=== PATIENT | female | born 1955 | race Caucasian/White ===

== ENCOUNTER 2020-04-16 09:31 | Outpatient (CLI) | payer MEDICARE, SELFPAY ==
--- NOTE | ~2020-04-16 | MM_ITS ---
EXAMINATION: MM screening romulo BI w tami HISTORY: Screening mammogram TECHNIQUE: Craniocaudal and mediolateral oblique 3-D tomosynthesis images were obtained and synthetic 2-D images were generated. CAD analysis was submitted and interpreted. COMPARISON: Comparison to multiple prior studies sequentially, with oldest reviewed study dated 05/2024. BREAST PARENCHYMAL COMPOSITION: There are scattered areas of fibroglandular density. FINDINGS: There is no evidence of suspicious mass, calcification, or architectural distortion to sugg est malignancy in either breast. There has been no suspicious interval change. IMPRESSION: 1. No mammographic evidence of malignancy. 2. Recommend routine screening mammography in one year. BI-RADS Category 1: Negative Reviewed, dictated and finalized at location A.
== END 2020-04-16 09:32 | disposition home or self-care (01) ==
PROVIDERS: PCP Student in an Organized Health Care Education/Training Program; Visit Provider Student in an Organized Health Care Education/Training Program
DX: Z12.31 Encounter for screening mammogram for malignant neoplasm of breast (principal)
CPT/HCPCS: 77063; 77067

== ENCOUNTER 2021-05-17 08:38 | Outpatient (CLI) | payer MEDICARE, SELFPAY ==
--- NOTE | ~2021-05-17 | MM_ITS ---
EXAMINATION: MM screening romulo BI w tami HISTORY: Screening mammogram, family history of breast cancer in her mother. TECHNIQUE: Craniocaudal and mediolateral oblique 3-D tomosynthesis images were obtained and synthetic 2-D images were generated. CAD analysis was submitted and interpreted. COMPARISON: 04/16/2020, 03/17/2019, 10/07/2017, 09/18/2017 BREAST PARENCHYMAL COMPOSITION: There are scattered areas of fibroglandular density. FINDINGS: There is no evidence of suspicious mass, calcification, or architectural distortion to sugg est malignancy in either breast. There has been no suspicious interval change. IMPRESSION: 1. No mammographic evidence of malignancy. 2. Recommend routine screening mammography in one year. BI-RADS Category 1: Negative Reviewed, dictated and finalized at location A.
== END 2021-05-17 08:39 | disposition home or self-care (01) ==
LOC: ANHIMG 08:40
PROVIDERS: PCP Student in an Organized Health Care Education/Training Program; Visit Provider Student in an Organized Health Care Education/Training Program
DX: Z12.31 Encounter for screening mammogram for malignant neoplasm of breast (principal)
CPT/HCPCS: 77063; 77067

== ENCOUNTER 2022-04-24 07:37 | Outpatient (NON) | payer MEDICARE, SELFPAY | END 2022-04-24 07:38 | disposition home or self-care (01) | PROVIDERS: PCP Student in an Organized Health Care Education/Training Program; Visit Provider Internal Medicine Gastroenterology | DX: D50.9 Iron deficiency anemia, unspecified (principal) | CPT/HCPCS: 88305 ==

== ENCOUNTER 2022-04-24 12:27 | Day surgery (SDC) | payer MEDICARE, SELFPAY ==
[2022-04-09 09:35] VITALS: BMI 29.9
[2022-04-24 12:45] VITALS: BP 123/65; PULSE 63; RESP 20; TEMP 36.8; O2SAT 100
[2022-04-24 12:47] VITALS: BMI 29.4
[2022-04-24] MEDS: LACTATED RINGERS 1,000 ML 150 ML IV CONT (13:12)
--- NOTE | 2022-04-24 13:54 | PM.IMHP ---
H&P: HPI History of Present Illness Date/Time: 04/24/22 13:54 Chief Complaint: Iron deficiency anemia. Narrative: This is a 66-year-old white female patient seen in evaluation at the [facility]. Patient found to have microcytic anemia on routine screening. She was also found to have iron deficient indices. Laboratory parameters also reflect leukopenia. Patient denies any obvious signs of GI blood loss. She does admit to rather heavy menses. Her weight appetite bowel movements are normal. Stool is general normal color. She has no excess bruising. No nose bleeds or other signs of blood loss. She presents today for GI endoscopy. Patient reports cologuard test was negative several years ago. She does have a prior colonoscopy many years ago that was unremarkable. Family history noncontributory. Review of Systems Review of Systems: Review of systems noncontributory. [facility] Past Medical History Medical History WALT (iron deficiency anemia) Family History Family History Father Family history of cardiovascular disease Acute myocardial infarction, Onset Age: 60 Family history of lung cancer Grandparent Family history of malignant neoplasm of breast Mother Family history of malignant neoplasm of breast in first degree relative Social History Social History Smoking status: Never smoker Alcohol intake: current Substance use type: does not use Living arrangements: with family Spiritual care concerns: No Meds Home Medications and Allergies Home Medications Medication Instructions Recorded Confirmed Type ferrous fumarate 325 mg (106 mg 325 mg PO DAILY 03/17/22 04/24/22 History iron) tablet peg 3350-electrolytes 236 240 ml PO Q10M #4,000 mL 04/08/22 04/24/22 Rx gram-22.74 gram-6.74 gram-5.86 gram solution (Golytely) Allergies Allergy/AdvReac Type Severity Reaction Status Date / Time latex Allergy Unknown Skin Verified 04/24/22 12:45 Reaction Vital Signs Vital Signs - 24 hr 04/24/22 12:45 Temperature 98.3 F Pulse Rate 63 Respiratory Rate 20 Blood Pressure 123/65 Pulse Oximetry 100 Oxygen Delivery Room Air Exam Narrative: Physical exam reveals patient to be alert. Vital signs stable. HEENT exam is unremarkable. Patient is anicteric. Lungs are clear to auscultation and percussion. Heart is without murmur or extra sounds. Abdomen bowel sounds present soft nontender with no organomegaly. Digital external rectal exam is normal. Assessment and Plan Assessment and plan (1) Leukopenia: Code(s): D72.819 - Decreased white blood cell count, unspecified Status: Acute Assessment and Plan: Leukopenia identified on initial blood testing. The etiology of this is unclear. This should be followed up with follow-up CBCs consider hematology evaluation if this persists. (2) WALT (iron deficiency anemia): Code(s): D50.9 - Iron deficiency anemia, unspecified Status: Acute Assessment and Plan: Patient recently found to have microcytic anemia with iron deficient indices. No obvious signs of GI blood loss she does admit to rather heavy menses. Plan is for GI endoscopy including colonoscopy an EGD. Stool Hemoccult should be obtained as well accomplished. Consider small-bowel follow-through if necessary. Because of low white count also consider hematologic process and hematology consult if GI endoscopy not fruitful. Further recommendations will be given after colonoscopy.
--- NOTE | 2022-04-24 14:55 | P.PNAN_ITS ---
Anes - Initial Pre Proc Eval Procedure: Operation Date: 04/24/22 14:00 Proposed Procedures p Esophagogastroduodenoscopy - Quinn Garcia MD s Diagnostic Colonoscopy - Quinn Garcia MD Date/Time: 04/24/22 14:55 Surgeon: Quinn Garcia MD Pre Op Diagnosis: IRON DEFICIENCY ANEMIA Patient Data Age: 66 Gender: F Height: 1.63 m Weight: 77.7 kg Last Vital Signs Temp 36.8 C 04/24/22 12:45 Pulse 63 04/24/22 12:45 Resp 20 04/24/22 12:45 BP 123/65 04/24/22 12:45 Pulse Ox 100 04/24/22 12:45 O2 Del Method Room Air 04/24/22 12:45 Allergies Allergy/AdvReac Type Severity Reaction Status Date / Time latex Allergy Unknown Skin Verified 04/24/22 12:45 Reaction Home Medications Medication Instructions Recorded Confirmed Type ferrous fumarate 325 mg (106 mg 325 mg PO DAILY 03/17/22 04/24/22 History iron) tablet peg 3350-electrolytes 236 240 ml PO Q10M #4,000 mL 04/08/22 04/24/22 Rx gram-22.74 gram-6.74 gram-5.86 gram solution (Golytely) Patient hx anesthesia problems: none Family hx anesthesia problems: none Results Review: All pre-operative results and documents have been reviewed as part of the pre- operative evaluation. [facility] Past Medical History Medical History WALT (iron deficiency anemia) Surgical History Surgical History (Updated 04/24/22 @ 14:55 by Felipe Machado MD) H/O colonoscopy Family History Family History Father Family history of cardiovascular disease Acute myocardial infarction, Onset Age: 60 Family history of lung cancer Grandparent Family history of malignant neoplasm of breast Mother Family history of malignant neoplasm of breast in first degree relative Social History Social History Smoking status: Never smoker Alcohol intake: current Substance use type: does not use Living arrangements: with family Spiritual care concerns: No Anes - Eval Final PreProcedure Day of Procedure 04/24/22 14:55 Patient weight: overweight Heart: regular rate and rhythm Lungs: clear to auscultation Airway: Mallampati scale class II Neurological: alert and oriented ASA classification: II Emergent: no Anesthetic plan: proceed Anesthesia type and monitoring: general GIVS and standard monitoring Results Review: All pre-operative results and documents have been reviewed as part of the pre- operative evaluation. Informed Consent: The patient's anesthetic plan and its attendant risks and benefits were discussed with the patient/family/POA. Questions were solicited and answers provided to the satisfaction of the patient/family/POA.
[2022-04-24 15:48] VITALS: BP 101/62; PULSE 69; RESP 16; O2SAT 100
--- NOTE | 2022-04-24 15:56 | WPDANESPN ---
Anes - Prog Note Post-Op Date/Time: 04/24/22 15:56 Cardiovascular status: normal Respiratory status: normal Airway patency: baseline Mental status: baseline Post-Op hydration status: normal Vital Signs: Last Vital Signs Temp 36.8 C 04/24/22 12:45 Pulse 63 04/24/22 12:45 Resp 20 04/24/22 12:45 BP 123/65 04/24/22 12:45 Pulse Ox 100 04/24/22 12:45 O2 Del Method Room Air 04/24/22 12:45 Pain Score (VAS): 0/10 I/O: Intake & Output 04/23/22 04/24/22 04/24/22 23:59 07:59 15:59 Intake Total 900 Balance 900 Patient Feedback: Patient satisfied with anesthetic care.
[2022-04-24 15:58] VITALS: BP 105/80; PULSE 65; RESP 16; O2SAT 100
[2022-04-24 16:08] VITALS: BP 114/67; PULSE 65; RESP 16; O2SAT 100
== END 2022-04-24 16:26 | disposition home or self-care (01) ==
PROVIDERS: PCP Student in an Organized Health Care Education/Training Program; Visit Provider Internal Medicine Gastroenterology
PROC: 0DJ08ZZ Inspection of Upper Intestinal Tract, Via Natural or Artificial Opening Endoscopic (ICD-10-PCS; CPT 43235; principal; 2022-04-24 14:00)
PROC: 0DJD8ZZ Inspection of Lower Intestinal Tract, Via Natural or Artificial Opening Endoscopic (ICD-10-PCS; CPT 45378; 2022-04-24 14:00)
DX: D50.9 Iron deficiency anemia, unspecified (principal)
CPT/HCPCS: 45385; 43239

== ENCOUNTER 2022-08-04 07:22 | Outpatient (CLI) | payer MEDICARE, SELFPAY ==
--- NOTE | ~2022-08-04 | DEXA_ITS ---
Bone Density Report Name: SITA RICO Age: 67 Sex: Female Ethnicity: White Date of : 1955 Indication: postmenopausal; screening for osteoporosis; Referring Provider: ARLINE, MARGUERITE Study: Bone densitometry was performed. Exam Date: August 04, 2022 Accession number: [id number] Bone Density: Region BMD T-score Z-score Classification AP Spine(L1-L4) 1.226 1.6 3.7 Normal Femoral Neck (Left) 0.854 0.0 1.8 Normal Total Hip (Left) 0.975 0.3 1.7 Normal Femoral Neck (Right) 0.884 0.3 2.0 Normal Total Hip (Right) 1.006 0.5 2.0 Normal Total Hip Mean 0.990 0.4 1.9 Normal World Health Organization criteria for BMD impression classify patients as: Normal (T-score at or above -1.0), Osteopenia (T-score between -1.0 and -2.5), or Osteoporosis (T-score at or below -2.5). 10-year Fracture Risk: FRAX not reported because: All T-scores for Spine Total, Hip Total, Femoral Neck at or above -1.0 Previous Exams: Region Exam Age BMD T-score BMD Change BMD Change Date g/cm2 vs Baseline vs Previous AP Spine (L1-L4) 08/04/2022 67 1.226 1.6 0.073 (6.3%)* 0.073 (6.3%)* 04/21/2016 60 1.153 1.0 Total Hip(Left) 08/04/2022 67 0.975 0.3 -0.118 (-10.8% -0.118 (-10.8% 04/21/2016 60 1.093 1.2 Total Hip(Right) 08/04/2022 67 1.006 0.5 -0.064 (-6.0%) -0.064 (-6.0%) 04/21/2016 60 1.069 1.0 *Denotes significance at 95% confidence level, LSC for AP Spine = 0.022 g/cm2, LSC for Total Hip = 0.027 g/cm2 Clinical Information Provided by Patient: Patient maximum height was 64.5 Menopause Age: 50 Drinks caffeinated beverages Onset of menses at age 8 Number of children 2 Impression: The patient has normal bone mass. The BMD for the Total Hip(Left) decreased, changing by -10.8% since the last DXA exam. The BMD for the Total Hip(Right) decreased, changing by -6.0% since the last DXA exam. Discussion: BONE DENSITY IS ABOVE THE MINIMUM DESIRABLE LEVEL AT ALL SKELETAL SITES TESTED. This patient?s bone mineral density is above the minimum desirable level (T-score -1.0 or better) at all sites measured. The patient should follow a healthful lifestyle (good nutrition with adequate calcium and vitamin D, and appropriate weight-bearing exercise). Follow-Up: Consider repeating this study in 3 to 4 years to reassess this patient's status, or sooner if there is some new clinical indication. Reported by: SANDIP on 08/04/2022 7
--- NOTE | ~2022-08-04 | MM_ITS ---
EXAMINATION: MM screening romulo BI w tami HISTORY: Screening mammogram TECHNIQUE: Craniocaudal and mediolateral oblique 3-D tomosynthesis images were obtained and synthetic 2-D images were generated. CAD analysis was submitted and interpreted. COMPARISON: 05/17/2021, 04/16/2020, 03/17/2019, 09/18/2017 bilateral screening mammogram examinations BREAST PARENCHYMAL COMPOSITION: There are scattered areas of fibroglandular density. FINDINGS: There is no evidence of suspicious mass, calcification, or architectural distortion to sugg est malignancy in either breast. There has been no suspicious interval change. IMPRESSION: 1. No mammographic evidence of malignancy. 2. Recommend routine screening mammography in one year. BI-RADS Category 1: Negative Reviewed, dictated and finalized at location A. 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
== END 2022-08-04 07:23 | disposition home or self-care (01) ==
LOC: ANHIMG 07:23
PROVIDERS: PCP Student in an Organized Health Care Education/Training Program; Visit Provider Student in an Organized Health Care Education/Training Program
DX: Z12.31 Encounter for screening mammogram for malignant neoplasm of breast (principal); Z78.0 Asymptomatic menopausal state
CPT/HCPCS: 77063; 77067; 77080

== ENCOUNTER 2023-11-30 08:27 | Outpatient (CLI) | payer MEDICARE, SELFPAY ==
--- NOTE | ~2023-11-30 | MM_ITS ---
EXAMINATION: MM screening romulo BI w tami HISTORY: Screening mammogram TECHNIQUE: Craniocaudal and mediolateral oblique 3-D tomosynthesis images were obtained and synthetic 2-D images were generated. CAD analysis was submitted and interpreted. COMPARISON: 08/04/2022, 05/17/2021 bilateral screening mammogram examinations BREAST PARENCHYMAL COMPOSITION: There are scattered areas of fibroglandular density. FINDINGS: There is no evidence of suspicious mass, calcification, or architectural distortion to sugg est malignancy in either breast. There has been no suspicious interval change. IMPRESSION: 1. No mammographic evidence of malignancy. 2. Recommend routine screening mammography in one year. BI-RADS Category 1: Negative Reviewed, dictated and finalized at location A. [employer]
== END 2023-11-30 08:28 | disposition home or self-care (01) ==
LOC: ANHIMG 08:30
PROVIDERS: PCP Student in an Organized Health Care Education/Training Program; Visit Provider Student in an Organized Health Care Education/Training Program
DX: Z12.31 Encounter for screening mammogram for malignant neoplasm of breast (principal)
CPT/HCPCS: 77063; 77067

== ENCOUNTER 2024-12-06 15:29 | Outpatient (CLI) | payer MEDICARE, SELFPAY ==
--- NOTE | ~2024-12-06 | MM_ITS ---
EXAMINATION: MM screening romulo BI w tami HISTORY: Screening mammogram, family history of breast cancer in her mother. TECHNIQUE: Craniocaudal and mediolateral oblique 3-D tomosynthesis images were obtained and synthetic 2-D images were generated. CAD analysis was submitted and interpreted. COMPARISON: 11/30/2023, 08/04/2022, 05/17/2021, 04/16/2020 BREAST PARENCHYMAL COMPOSITION:Not Dense. There are scattered areas of fibroglandular density. FINDINGS: No suspicious mass, calcification, or architectural distortion are identified in either rachana ast to suggest malignancy. There has been no suspicious interval change. IMPRESSION: No mammographic evidence of malignancy. Recommend routine screening mammography in one year. BI-RADS Category 1: Negative Reviewed, dictated and finalized at location .
--- OUTSIDE RECORDS SUMMARY | 2024-12-06 17:30 | XMS_ITS | Clinical Summary ---
Author Organization [facility] Address [address] [place] [address] Care Team Providers Care Dial Mounter Name Role Phone Unknown, Provider Primary Care Provider Unavaila ble Source Comments [facility],non-owned Affiliates and Associated Physician Practices is amultiple site organization consisting of ambulatory clinics and hospital sitesin [place] and [place]. This disclosure is being madepursuant to the Care Everywhere program and may not contain all information available regarding this patient. Last updated 18.[facility] Allergies No known active allergies Medications Be aware that medications may not be up to date on this document. Always verify current medications with the patient. No known medications Social History Tobacco Use Types Packs/Day Years Used Date Smoking Tobacco: Never Assessed Sex and Gender Information Value Date Recorded Sex Assigned at Not on file Gender Identity Not on file Sexual Orientation Not on file Plan of Treatment Health Maintenance Due Date Last Done Comments BONE DENSITY TESTING 1955 COLON MONITORING 1955 COLONOSCOPY - COLON CA SCREENING 1955 CT COLONOGRAPHY - COLON CA SCREENING 1955 FIT - COLON CA SCREENING 1955 FLEX SIG - COLON CA SCREENING 1955 MAMMOGRAM 1955 DTAP/TDAP/TD VACCINES (1 - Tdap) 1972 PNEUMOCOCCAL VACCINE 50+ (1 of 1 - PCV) 2003 ZOSTER VACCINE (1 of 2) 2003 COLOGUARD (AGES 45-75) - COLON CA SCREENING 11/28/2022 11/29/2019 Colorectal Cancer Screening 11/28/2022 COVID-19 VACCINE (1 - 2023-25 season) 2024 INFLUENZA VACCINE (#1) 2024 9, 07/19/2018, 07/16/2018, Additional history exists DEPRESSION SCREENING 09/28/2024 LIPID TESTING 01/16/2028 01/15/2023 Respiratory Syncytial Virus (RSV) Vaccine Pt: or over 60 yrs (1 - 1-dose 75+ series) 2028 HEPATITIS C SCREENING Completed 01/15/2023, 023 HEPATITIS B VACCINE Aged Out No longe r eligible based on patient's age to complete this topic HIB VACCINE Aged Out No longer eligi ble based on patient's age to complete this topic HPV VACCINE Aged Out No longer eligi ble based on patient's age to complete this topic MENINGOCOCCAL (Group B) VACCINE Aged Out No longer eligible based on patient's age to complete this topic MENINGOCOCCAL VACCINE Aged Out No verito isabel eligible based on patient's age to complete this topic Procedures Procedure Name Priority Date/Time Associated Diagnosis Comments LIPID PROFILE Routine 01/15/2023 10:29 AM CDT Willing to be kidney donor HEPATITIS C RNA QUANTITATIVE Routine 01/15/2023 10:29 AM CDT Willing to be kidney donor from Last 3 Months or Most Recently Relevant to Health Maintenance Results * HEPATITIS C RNA QUANTITATIVE (01/15/2023 10:29 AM CDT) Hepatitis C RNA PCR, Interp Not detected Not detected 01/19/2023 1:08 PM CDT [facility]CRO[facility] Blood BLOOD SPECIMEN / Unknown Lab Venipuncture / Unknown 01/15/2023 10:29 AM CDT 01/15/2023 1:15 PM CDT Narrative [facility]CRO[facility] - 01/19/2023 1:08 PM CDT The Hepatitis C viral (HCV) RNA analysis utilized a serum sample, real-time reverse power plant supervisor PCR, and is reported as Not Detected, Detected (<12 IU/mL), Quantity (IU/mL) or >30,000,000 IU/mL. The limit of quantitation of the assay is 12 IU/mL (100% of samples with this HCV RNA level were detected). The linear range is from 12 IU/mL to 30,000,000 IU/mL. Values less than 12 IU/mL are reported as Detected (<12 IU/mL). Values greater than 30,000,000 IU/mL are reported as >30,000,000 IU/mL. The detection/quantitation of HCV RNA in serum is based on the isolation of HCV RNA with reverse power plant supervisor of genomic HCV RNA followed by real-time PCR in the presence of an unrelated RNA internal control. The internal control ensures that RNA is isolated, and that no general significant inhibitors of the RT-PCR process are present. The analysis was performed using a U.S. FDA approved test methodology. Steven Wiggins MD LAB - CHEMISTRY ORDERABLES [facility] [address] [place] [address], [facility] [phone] * (ABNORMAL) LIPID PROFILE (01/15/2023 10:29 AM CDT) [facility] Cholesterol Total 249(H) <200 mg/dL 01/15/2023 11:25 AM [facility] HDL 74 >40 mg/dL 01/15/2023 11:25 AM [facility] Comment: ATP III Classification of HDL Cholesterol: <40 mg/dL: Considered a major risk factor. >60 mg/dL: Considered a negative risk factor. LDL Calculated 158(H) <100 mg/dL 01/15/2023 11:25 AM [facility] Comment: ATP III Classification of LDL Cholesterol: <100 mg/dL: Optimal 100 - 129 mg/dL: Near Optimal/Above Optimal 130 - 159 mg/dL: Borderline High 160 - 189 mg/dL: High >190 mg/dL: Very High Triglycerides 83 <150 mg/dL 01/15/2023 11:25 AM [facility] Comment: ATP III Classification of Triglycerides: <150 mg/dL: Normal 150 - 199 mg/dL: Borderline High 200 - 400 mg/dL: High >500 mg/dL: Very High Blood BLOOD SPECIMEN / Unknown Lab Venipuncture / Unknown 01/15/2023 10:29 AM CDT 01/15/2023 10:58 AM CDT Steven Wiggins MD LAB - CHEMISTRY ORDERABLES [facility] [address] [place] [address], [facility] [phone] from Last 3 Months or Most Recently Relevant to Health Maintenance Care Teams Dial Mounter Relationship Specialty Start Date End Date Unknown, Provider PCP - General 01/13/23
--- OUTSIDE RECORDS SUMMARY | 2024-12-06 17:30 | XMS_ITS | Referral Summary ---
Author Organization [facility] Address [address] [place] [address] Care Team Providers Care Classroom Assistant Name Role Phone Unknown, Provider Primary Care Provider Unavaila ble Source Comments [facility],non-owned Affiliates and Associated Physician Practices is amultiple site organization consisting of ambulatory clinics and hospital sitesin [place], [place], [place] and [place]. This disclosure is being madepursuant to the Care Everywhere program and may not contain all information available regarding this patient. Last updated 18.[facility] [employer] Allergies No known active allergies Medications Be [...] Orientation Not on file Plan of Treatment Not on file Procedures Procedure Name Priority Date/Time Associated Diagnosis [...] detected Not detected 01/19/2023 1:08 PM CDT [facility] Blood BLOOD SPECIMEN / Unknown Lab Venipuncture / Unknown 01/15/2023 10:29 AM CDT 01/15/2023 1:15 PM CDT Narrative [facility]CROBIOLOG[facility] - 01/19/2023 1:08 PM CDT The Hepatitis C viral (HCV) RNA analysis utilized a serum sample, real-time reverse housekeeper nanny PCR, and is reported as Not Detected, [...] the isolation of HCV RNA with reverse housekeeper nanny of genomic HCV RNA followed by real-time PCR in the presence of an unrelated RNA internal control. The internal control ensures that RNA is isolated, and that no general significant inhibitors of the RT-PCR process are present. The analysis was performed using a U.S. FDA approved test methodology. Steven Wiggins MD LAB - CHEMISTRY ORDERABLES [facility]CRO[facility] [address], [place] [address], [facility] [phone] * (ABNORMAL) LIPID PROFILE (01/15/2023 10:29 AM CDT) [facility] Signature Cholesterol Total 249(H) <200 mg/dL 01/15/2023 11:25 AM [facility] HDL 74 >40 mg/dL 01/15/2023 11:25 AM [facility] Comment: ATP III Classification of HDL Cholesterol: <40 mg/dL: Considered a major risk factor. >60 mg/dL: Considered a negative risk factor. LDL Calculated 158(H) <100 mg/dL 01/15/2023 11:25 AM [facility] Comment: ATP III Classification of LDL Cholesterol: <100 mg/dL: Optimal 100 - 129 mg/dL: Near Optimal/Above Optimal 130 - 159 mg/dL: Borderline High 160 - 189 mg/dL: High >190 mg/dL: Very High Triglycerides 83 <150 mg/dL 01/15/2023 11:25 AM CDT [facility] Comment: ATP III Classification of Triglycerides: <150 mg/dL: Normal 150 - 199 mg/dL: Borderline High 200 - 400 mg/dL: High >500 mg/dL: Very High Blood BLOOD SPECIMEN / Unknown Lab Venipuncture / Unknown 01/15/2023 10:29 AM CDT 01/15/2023 10:58 AM CDT Steven Wiggins MD LAB - CHEMISTRY ORDERABLES [facility] [address] [place] [address], [facility] [phone] from Last 3 Months or Most Recently Relevant to Health Maintenance Care Teams Classroom Assistant Relationship Specialty Start Date End Date Unknown, Provider PCP - General 01/13/23
--- OUTSIDE RECORDS SUMMARY | 2024-12-06 17:31 | XMS_ITS | Clinical Summary ---
Author Organization [facility] Address [address] [place] [address] Care Team Providers Care Amortization Schedule Clerk Name Role Phone Walter Brown Primary Care Provider + Allergies Active Allergy Reactions Criticality Noted Date Comments Latex Rash Low 11/19/2018 Medications triamcinolone (KENALOG) 0.1 % creamIndication s:Rash Apply topically 2 (two) times daily. 45 g 2 Active terbinafine (LAMISIL) 250 MG tablet Take 1 tablet (250 mg total) by mouth daily. 4 Active valACYclovir (VALTREX) 1 g tabletIndicatio ns:Recurrent cold sores Take 2 tablets at onset of symptoms and 12 hours for 1 day. 20 tablet 2 4 Active Active Problems Problem Noted Date Diagnosed Date Rash of body 11/07/2019 HNP (herniated nucleus pulposus), lumbar 019 Immunizations Name Administration Dates Next Due Fluzone High Dose - >Age 65 (Prefilled Syringe) 08/10/2023,07/18/2022,07/09/2021,2019 Hepatitis A 08/03/2006,07/08/2005 Hepatitis B (Generic: Adult) 05/06/2006 Influenza (Generic) 07/19/2018 Influenza Adult (Generic) 07/18/2022,03/2019,07/16/2018,2016,07/27/2017,07/26/2017,08/30/2015,1 PFIZER COVID-19 (ORIGINAL FORMULATION, PURPLE CAP) mRNA, LNP-S, PF, 30 MCG/0.3 ML DOSE 10/02/2021,12/16/2020,11/25/2020 Pneumococcal (Pneumovax 23) 07/25/2020 Pneumococcal (Prevnar 13) 07/16/2018 Shingrix 09/29/2019,07/15/2019 Tdap (Generic) 07/08/2005 Family History Medical History Relation Comments Cancer Father Lung and Bones Diabetes Maternal Aunt Arthritis Mother Cancer Mother breast and Uteri ne Cancer Paternal Grandmother breast Relation Status Comments Father Maternal Aunt Mother Paternal Grandmother Social History Tobacco Use Types Packs/Day Years Used Date Smoking Tobacco: Never Passive Smoke Exposure: Never Smokeless Tobacco: Never Comments:never Alcohol Use Standard Drinks/Week Comments Not Currently 0 (1 standard drink = 0.6 oz pur e alcohol) AUDIT-C Answer Date Recorded Frequency of Alcohol Consumption 2-4 times a mon 11/07/2019 Average Number of Drinks 1 or 2 020 Frequency of Binge Drinking Never 10/29 PHQ-2 Answer Date Recorded Patient Health Questionnaire-2 Score 0 05/05/2024 Comments No Sex and Gender Information Value Date Recorded Sex Assigned at Not on file Legal Sex Female 7:13 PM CDT Gender Identity Not on file Sexual Orientation Not on file Occupation Industry Job Start Date Job End Date Not on file Not on file Not on file Not on file Last Filed Vital Signs Vital Sign Reading Time Taken Comments Blood Pressure 102/70 05/05/2024 8:21 AM CDT Pulse 78 05/05/2024 8:21 AM CDT Temperature 36.3 C (97.3 F) 05/05/2024 8:21 AM CDT Respiratory Rate 16 05/05/2024 8:21 AM CDT Oxygen Saturation 97% 05/05/2024 8:21 AM CDT Inhaled Oxygen Concentration - - Weight 79.4 kg (175 lb) 05/05/2024 8:21 AM CDT Height 165.1 cm (5' 5 ) 05/05/2024 8:21 AM CDT Body Mass Index 29.12 05/05/2024 8:21 AM CDT Plan of Treatment Health Maintenance Due Date Last Done Comments Annual Medicare Wellness Visit 2018 COVID-19 Vaccine ( season) 2024 10/02/2021, 12/16/2020, 11/25/2020 Influenza Adult (#1) 2024 08/10/2023, 07/18/2022, 07/18/2022, Additional history exists PHQ-2 (Physician [place]) 09/28/2024 05/05/2024 Mammogram Screening 11/29/2024 11/30/2023, 08/04/2022, 05/17/2021, Additional history exists PHQ-2 (Physician [place]) 05/05/2025 05/05/2024 Colorectal Cancer Screening Colonoscopy (10 Years) 04/24/2027 04/24/2022 RSV Immunization or 60+ Years (1 - 1-dose 75+ series) 2028 DTaP, Tdap and Td Vaccines (2 - Td or Tdap) 11/07/2028 07/08/2005 Postponed from 07/08/2015 (Per Provider Recommendation) Zoster Vaccines Completed 09/29/2019, 07/15/2019 Pneumococcal Vaccine: 65+ Years Completed 07/25/2020, 07/16/2018 Dexa Scan (General) Completed 08/04/2022, Hepatitis C Completed 01/15/2023, 12/28, 01/15/2023, Additional history exists Meningococcal B Vaccine Aged Out No l onger eligible based on patient's age to complete this topic Meningococcal Vaccine Aged Out No verito isabel eligible based on patient's age to complete this topic RSV Immunizations Under 20 Months Aged Out No longer eligible based on patient's age to complete this topic Procedures Procedure Name Priority Date/Time Associated Diagnosis Comments MAMMOGRAM GENERIC (SCAN ORDER) 11/30/2023 BONE DENSITY/DEXA Routine 08/04/2022 12: 00 AM [employer]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 Postmenopause COLONOSCOPY GENERIC (SCAN ORDER) 04/24/2022 HEPATITIS C ANTIBODY Routine 01/28/2022 8:37 AM CDT Encounter for preventative adult health care examination Need for hepatitis C screening test from Last 3 Months or Most Recently Relevant to Health Maintenance Results * MAMMOGRAM GENERIC (SCAN ORDER) (11/30/2023) Anatomical Region Laterality Modality Other 11/30/2023 [facility] Scanned SCANNING Final Resu lt * BONE DENSITY/DEXA (08/04/2022 12:00 AM 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 Documents Scanned SCANNING Final Result * HEPATITIS C AB ([facility] ONLY) (01/28/2022 8:37 AM CDT) HEPATITIS C AB NON-REACTI VE NON-REACT LATESHA 01/31/2022 9:06 PM CDT [facility] Comment: ANTIBODIES TO HCV NOT DETECTED. DOES NOT EXCLUDE THE POSSIBILITY OF EXPOSURE TO HCV. 01/28/2022 8:37 AM CDT Walter Brown DO LABORATORY Final Re sult [facility] [address] [place] [address], [id number] from Last 3 Months or Most Recently Relevant to Health Maintenance Insurance Care Teams Amortization Schedule Clerk Relationship Specialty Start Date End Date Walter Brown DO [address] [place], [place] [id number] PCP - General FAMILY PRACTICE 11/07/19
--- OUTSIDE RECORDS SUMMARY | 2024-12-06 17:31 | XMS_ITS | Encounter Summary ---
Author Organization [facility] Address [address] [place] [address] Care Team Providers Care Slide Developer Name Role Phone Unknown, Provider Primary Care Provider Unavaila ble Reason for Referral * Radiology Services (Routine) - Closed Specialty Diagnoses / Procedures Referred By Jocelyne t Referred To Contact Diagnoses Willing to be kidney donor Procedures ECHO STRESS W EXERCISE Steven Wiggins MD [address] [facility] [place] [address] Referral ID Status Reason Start Date Expiration Date Visits Re quested Visits Authorized [id number] Closed 01/05/2023 01/05/2024 1 1 * OP/Amb RFL Auth (Routine) - Closed Specialty Diagnoses / Procedures Referred By Jocelyne sanchez Referred To Contact Diagnoses Willing to be kidney donor Procedures EKG 12-LEAD Steven Wiggins MD [address] [facility] [place] [address] [facility] Ekg/Holter [address] [place] [address] Referral ID Status Reason Start Date Expiration Date Visits Re quested Visits Authorized [id number] Closed 01/05/2023 01/05/2024 1 1 * Radiology Services (Routine) - Closed Specialty Diagnoses / Procedures Referred By Contac t Referred To Contact CT Scan Diagnoses Willing to be kidney donor Procedures CT ANGIO ABDOMEN PELVIS Steven Wiggins MD [address] [facility] [place] [address] Referral ID Status Reason Start Date Expiration Date Visits Re quested Visits Authorized [id number] Closed 01/05/2023 01/05/2024 1 1 Encounter Details Date Type Department Care Team (Late st Contact Info) Description 01/05/2023 Telephone [facility] JONATHAN CSM 3L [address] [facility], [place] [id number] Omar Nagy, LIZ Social History Tobacco Use Types Packs/Day Years Used Date Smoking Tobacco: Never Assessed Sex and Gender Information Value Date Recorded Sex Assigned at Not on file Gender Identity Not on file Sexual Orientation Not on file documented as of this encounter Plan of Treatment Scheduled Orders Name Type Priority Associated Diagnoses Order Schedule ECHO STRESS W EXERCISE Echocardiography Radiant Routine Willing to be kidney donor Expected: 01/05/2023, Expires: 07/04/2023 documented as of this encounter Results * CT ANGIO ABDOMEN PELVIS (01/15/2023 11:29 AM CDT) Anatomical Region Laterality Modality Abdomen, Pelvis Computed Tomogra phy 01/15/2023 1:37 PM CDT Impressions 01/15/2023 5:23 PM CDT IMPRESSION: 1.Kidney measurements and vasculature as above. 2.Three-dimensional rendering of bilateral kidneys for operative planning. 3.Normal bilateral kidneys without hydronephrosis or nephrolithiasis. Two small cysts in the right kidney measuring up to 7 mm. 4.2 cm hemangioma in the hepatic segment 7. This report was drafted by Dr. Henrique Camejo MD. (residential property manager). Savana House MD have personally reviewed and interpreted this examination/study. > Interpreting Provider: Savana Tao MD on 01/15/2023 5:23 PM Narrative 01/15/2023 5:23 PM CDT PROCEDURE: CT ANGIO ABDOMEN PELVIS, DATE/TIME OF EXAM: 01/15/2023 11:30 AM, LOCATION [facility] INDICATION: Z00.5: Willing to be kidney donor Comparison: None Indication: Z00.5: Willing to be kidney donor Technique: CTA imaging of the abdomen and pelvis without and with IV contrast was performed using the renal donor protocol. Precontrast imaging of the abdomen and pelvis was performed. The patient then received IV contrast (Isovue-300, 150 mL) without incident. CTA imaging of the renal arteries and abdomen was performed in the arterial phase, followed by venous phase imaging of the abdomen and pelvis. A delayed AP engineer byproduct view of the abdomen and pelvis was obtained. Iodinated contrast was used due to the indications for the examination, to improve disease detection and to further define anatomy. The examination made use of volume rendering and multiple planar reformations. This rendering was performed because of the indication(s) for the examinations. If 3D reconstructions had not been performed, the likelihood of detecting an abnormality relevant to the patient's condition would have been substantially decreased.The most recent serum creatinine is 0.81 mg/dL on 01/15/2023. FINDINGS: Right Kidney: Number of arteries: 1 Number of veins: 1 Number of ureters: 1 Kidney length (AP): 4.3 cm Kidney length: 10.7 cm Kidney width ( TV): 5.7 cm Kidney volume (mL/cc): 137.2 mL Renal artery has early bifurcation(<10mm from aorta): No Left Kidney: Number of arteries: 1 Number of veins: 1 Number of ureters: 1 Kidney length (AP): 4.7 cm Kidney length: 10.4 cm Kidney width (TV): 4.9 cm Kidney volume (mL/cc): 125.3 mL Renal artery has early bifurcation(<10mm from aorta): No There is a 7 mm cyst at the superior pole of the right kidney (series 13, image 62). There is a 3 mm low density structure in the interpolar right kidney, likely representing a cyst. There is no hydronephrosis or nephrolithiasis. There is acute angulation in the proximal one third course of the right ureter without upstream dilatation (series 14, image 38). The left ureter has course and caliber. No filling defect in the ureters is identified. The urinary bladder is normal. Lower Chest: There is linear atelectasis at the right lung base. An approximately 4 mm is nodule is noted in the right lung base with linear configuration on coronal images (image 42, series 7, image 50, series 14), likely benign. Abdomen: Liver and Gall Bladder: There is an approximately 2 cm ill-defined low density lesion in the hepatic segment 7 (series 7, image 43) with peripheral nodular arterial enhancement. This lesion demonstrate gradual centripetal filling on delayed contrast enhancement phases. This is compatible with a hemangioma. The gallbladder is normal. There is no biliary dilatation. Spleen: Normal. Pancreas: Normal. Adrenals: Adrenals are normal. Gastrointestinal: A tiny hiatal hernia is present. The stomach is otherwise normal. Bowel loops are normal without bowel wall thickening or obstruction. The small bowel and colon appear normal without wall thickening or obstruction. Mesentery/Peritoneum/Retroperitoneum: There is no mesenteric or retroperitoneal lymphadenopathy. There is no free intraperitoneal fluid. Pelvic Structures: The uterus and adnexa unremarkable. There is no free pelvic fluid. There is no pelvic lymphadenopathy. Vasculature: The abdominal aorta has normal course and caliber. No significant atherosclerosis of abdominal aorta and major branch vessels. The IVC is normal. Bones and Soft tissues: Bone windows demonstrate no suspicious lytic or blastic lesions. The visible osseous structures are intact. Degenerative changes are seen in the lumbar spine. There is trace anterolisthesis of L4 over L5. Procedure Note Val Tao MD - 01/15/2023 PROCEDURE: CT ANGIO ABDOMEN PELVIS, DATE/TIME OF EXAM: 01/15/2023 11:30 AM, LOCATION [facility] INDICATION: Z00.5: Willing to be kidney donor Comparison: None Indication: Z00.5: Willing to be kidney donor Technique: CTA imaging of the abdomen and pelvis without and with IV contrast was performed using the renal donor protocol. Precontrastimaging of the abdomen and pelvis was performed. The patient then received IV contrast (Isovue-300, 150 mL) without incident. CTA imaging of therenal arteries and abdomen was performed in the arterial phase, followed by venous phase imaging of the abdomen and pelvis. A delayed AP engineer byproduct viewof the abdomen and pelvis was obtained. Iodinated contrast was used dueto the indications for the examination, to improve disease detection and to further define anatomy. The examination made use of volume rendering and multiple planar reformations. This rendering was performed because ofthe indication(s) for the examinations. If 3D reconstructions had not been performed, the likelihood of detecting an abnormality relevant to the patient's condition would have been substantially decreased.The mostrecent serum creatinine is 0.81 mg/dL on 01/15/2023. FINDINGS: Right Kidney: Number of arteries: 1 Number of veins: 1 Number of ureters: 1 Kidney length (AP): 4.3 cm Kidney length: 10.7 cm Kidney width ( TV): 5.7 cm Kidney volume (mL/cc): 137.2 mL Renal artery has early bifurcation(<10mm from aorta): No Left Kidney: Number of arteries: 1 Number of veins: 1 Number of ureters: 1 Kidney length (AP): 4.7 cm Kidney length: 10.4 cm Kidney width (TV): 4.9 cm Kidney volume (mL/cc): 125.3 mL Renal artery has early bifurcation(<10mm from aorta): No There is a 7 mm cyst at the superior pole of the right kidney ([id number], image 62). There is a 3 mm low density structure in the interpolar right kidney, likely representing a cyst. There is no hydronephrosis or nephrolithiasis. There is acute angulation in the proximal one thirdcourse of the right ureter without upstream dilatation (series 14, image 38).The left ureter has course and caliber. No filling defect in the ureters is identified. The urinary bladder is normal. Lower Chest: There is linear atelectasis at the right lung base. An approximately 4mm is nodule is noted in the right lung base with linear configuration on coronal images (image 42, series 7, image 50, series 14), likely benign. Abdomen: Liver and Gall Bladder: There is an approximately 2 cm ill-defined low density lesion in the hepatic segment 7 (series 7, image 43) with peripheral nodular arterial enhancement. This lesion demonstrate gradual centripetal filling ondelayed contrast enhancement phases. This is compatible with a hemangioma. The gallbladder is normal. There is no biliary dilatation. Spleen: Normal. Pancreas: Normal. Adrenals: Adrenals are normal. Gastrointestinal: A tiny hiatal hernia is present. The stomach is otherwise normal. Bowel loops are normal without bowel wall thickening or obstruction. The small bowel and colon appear normal without wall thickening or obstruction. Mesentery/Peritoneum/Retroperitoneum: There is no mesenteric or retroperitoneal lymphadenopathy. There is nofree intraperitoneal fluid. Pelvic Structures: The uterus and adnexa unremarkable. There is no free pelvic fluid. Thereis no pelvic lymphadenopathy. Vasculature: The abdominal aorta has normal course and caliber. No significant atherosclerosis of abdominal aorta and major branch vessels. The IVC is normal. Bones and Soft tissues: Bone windows demonstrate no suspicious lytic or blastic lesions. The visible osseous structures are intact. Degenerative changes are seen inthe lumbar spine. There is trace anterolisthesis of L4 over L5. IMPRESSION: 1.Kidney measurements and vasculature as above. 2.Three-dimensional rendering of bilateral kidneys for operativeplanning. 3.Normal bilateral kidneys without hydronephrosis or nephrolithiasis.Two small cysts in the right kidney measuring up to 7 mm. 4.2 cm hemangioma in the hepatic segment 7. This report was drafted by Dr. Henrique Camejo MD. (Radiologyresident). Savana House MD have personally reviewed and interpreted this examination/study. > Interpreting Provider: Savana aTo MD on 01/15/2023 5:23 PM Steven Wiggins MD CT ORDERABLES * XR CHEST 2VW (01/15/2023 10:51 AM CDT) Anatomical Region Laterality Modality Chest Radiographic Lin ging 01/15/2023 2:01 PM CDT Narrative 01/16/2023 12:33 PM CDT PROCEDURE: XR CHEST 2VW, DATE/TIME OF EXAM: 01/15/2023 10:51 AM, LOCATION [facility] INDICATION: Z00.5: Willing to be kidney donor COMPARISON: None. FINDINGS/IMPRESSION: There is no focal consolidation, pleural effusion, or pneumothorax. The cardiomediastinal silhouette is normal. The visible bony thorax is intact. Report dictated by Juanjose Munguia DO (residential treatment staff). Mallory House MD have personally reviewed and interpreted this examination/study. > Interpreting Provider: Mallory Conteh MD on 01/16/2023 12:33 PM Procedure Note Mallory Conteh MD - 01/16/2023 PROCEDURE: XR CHEST 2VW, DATE/TIME OF EXAM: 01/15/2023 10:51 AM, LOCATION [facility] INDICATION: Z00.5: Willing to be kidney donor COMPARISON: None. FINDINGS/IMPRESSION: There is no focal consolidation, pleural effusion, or pneumothorax. The cardiomediastinal silhouette is normal. The visible bony thorax isintact. Report dictated by Juanjose Munguia DO (residential treatment staff). I, Mallory Conteh MD have personally reviewed and interpreted this examination/study. > Interpreting Provider: Mallory Conteh MD on 01/16/2023 12:33 PM Steven Wiggins MD DIAGNOSTIC IMAG ING ORDERABLES * (ABNORMAL) MICROALB/CREAT RATIO URINE RANDOM PANEL (01/15/2023 10:43 AM CDT) Albumin Random Urine <5.0 Not Established ug/mL 01/15/2023 11:28 AM T [facility] Creatinine Urine 11 Not Established mg/dL 01/15/2023 11:28 AM CDT [facility] Urine Albumin/Creati nine Ratio <45(H) <30 mg/g 01/15/2023 11:28 AM [facility] Albumin/Creati nine Ratio Urine See Comment <30 mg/g 01/15/2023 11:28 AM T [facility] Comment:Unable to calculate the Urine Albumin/Creatinine Ratio due to one or more analyte concentration(s) being outside the measuring limits of the instrument. Urine URINE SPECIMEN OBTAINED BY CLEAN CATCH PROCEDURE / Unknown Collection / Unknown 01/15/2023 10:43 AM CDT 01/15/2023 10:57 AM CDT Steven Wiggins MD LAB - URINE SILVIO MARLENI ORDERABLES [facility] [address] [address], [facility] [phone] * CULTURE URINE (01/15/2023 10:43 AM CDT) Culture Urine <10,000 CFU/mL urogenital chau LORNA 01/16/2023 2:37 PM CDT [facility] MICROBIOLOGY Urine URINE SPECIMEN OBTAINED BY CLEAN CATCH PROCEDURE / Unknown Collection / Unknown 01/15/2023 10:43 AM CDT 01/15/2023 11:28 AM CDT Steven Wiggins MD LAB - MICROBIOL OGY ORDERABLES [facility] MICROBIOLOGY [address] [place] [address] [phone] * (ABNORMAL) URINALYSIS W/MICROSCOPIC NO CULTURE (01/15/2023 10:43 AM CDT) Color UA Colorless(A ) Straw, Yellow 01/15/2023 11:27 AM [facility] Clarity UA Clear Clear 01/15/2023 11:27 AM [facility] Specific [place] UA 1.001(L) 1.005 - 1.030 01/15/2023 11:27 AM [facility] pH UA 7.0 5.0 - 8.0 pH 01/15/2023 11:27 AM [facility] Protein UA Negative Negative 01/15/2023 11:27 AM [facility] Glucose UA Negative Negative 01/15/2023 11:27 AM [facility] Ketone UA Negative Negative 01/15/2023 11:27 AM [facility] Bilirubin UA Negative Negative 01/15/2023 11:27 AM [facility] Blood UA Negative Negative 01/15/2023 11:27 AM [facility] Nitrite UA Negative Negative 01/15/2023 11:27 AM [facility] Leukocyte Esterase Negative Negative 01/15/2023 11:27 AM [facility] Urobilinogen UA Negative Negative mg/dL 01/15/2023 11:27 AM [facility] RBC UA 0-2 None Seen, 0-2, 3-5 /HPF 01/15/2023 11:27 AM [facility] WBC UA 0-5 None Seen, 0-5 /HPF 01/15/2023 11:27 AM [facility] Squamous Epithelial Cells UA None Seen None Seen, 0-2, 3-5 /HPF 01/15/2023 11:27 AM [facility] Urine URINE SPECIMEN OBTAINED BY CLEAN CATCH PROCEDURE / Unknown Collection / Unknown 01/15/2023 10:43 AM CDT 01/15/2023 10:57 AM CDT Narrative [facility] - 01/15/2023 11:27 AM CDT Steven Wiggins MD LAB - URINALYSI S ORDERABLES [facility] [address] [place] [address], [facility] [phone] * URINE DRUG SCREEN IMMUNOASSAY (01/15/2023 10:43 AM CDT) [facility] Amphetamines Screen Urine Negative Negative: < 1000 ng/mL 01/15/2023 11:28 AM [facility] Barbiturates Screen Urine Negative Negative: < 200 ng/mL 01/15/2023 11:28 AM [facility] Benzodiazepine Screen Urine Negative Negative: < 200 ng/mL 01/15/2023 11:28 AM [facility] Opiates Urine Negative Negative: < 300 ng/mL 01/15/2023 11:28 AM [facility] Cocaine Metabolites Urine Negative Negative: < 300 ng/mL 01/15/2023 11:28 AM [facility] Phencyclidine Screen Urine Negative Negative: < 25 ng/ml 01/15/2023 11:28 AM [facility] Cannabinoids Screen Urine Negative Negative: <50 ng/mL 01/15/2023 11:28 AM [facility] Methadone Screen Urine Negative Negative: < 300 ng/mL 01/15/2023 11:28 AM [facility] Fentanyl Screen Urine Negative Negative: <1.5 ng/mL 01/15/2023 11:28 AM [facility] Urine URINE / Unknown Collection / Unknown 01/15/2023 10:43 AM CDT 01/15/2023 10:57 AM CDT Narrative [facility] - 01/15/2023 11:28 AM CDT The Urine Toxicology Screening Panel does not screen for Propoxyphene, Meprobamate, Carisoprodol, Trazodone, [id number]-nqk-yumtvmh medications and/or volatiles (Acetone, Isopropanol, Methanol or Ethylene Glycol). Ethanol, Salicylate, Acetaminophen, Tricyclic Antidepressants and several therapeutic drugs may be individually assayed in serum or plasma specimen. Toxicology testing by the [facility] is an aid to medical diagnosis and treatment of patients. No documented chain of custody was maintained. Results are intended to be used for clinical purposes only. Steven Wiggins MD LAB - URINE SILVIO MARLENI ORDERABLES [facility] [address] [place] [address], [facility] [phone] * EKG 12-LEAD (01/15/2023 10:34 AM CDT) Ventricular Rate 55 BPM [facility] Atrial Rate 55 BPM [facility] P-R Interval 158 ms [facility] QRS Duration ms 72 ms [facility] Q-T Interval ms 444 ms [facility] QTC Calculation (Bezet) 424 ms [facility] Calculated [place] 76 degrees [facility] Calculated [place] 58 degrees [facility] Calculated [place] 39 degrees [facility] Interpretation EKG SINUS BRADYCARDIA OTHERWISE NORMAL ECG NO PREVIOUS ECGS AVAILABLE Confirmed by Jl Bauer ([id number]) on 01/19/2023 11:30:37 AM [facility] 01/15/2023 10:3 4 AM CDT 01/19/2023 11:30 AM CDT Steven Wiggins MD ECG ORDERABLES [facility] * NICOTINE + METABOLITES BLOOD (01/15/2023 10:29 AM CDT) Nicotine <5 ng/mL 01/19/2023 12:43 AM CDT [employer] ([facility]) Comment: Consistent with abstinence from nicotine-containing products for at least 1 week. INTERPRETIVE INFORMATION: Nicotine and Metabolites, Serum or Plasma, Quantitative Methodology: Quantitative Liquid Chromatography-Tandem Mass Spectrometry Positive cutoff: 5 ng/mL For medical purposes only; not valid for forensic use. This test is designed to evaluate recent use of nicotine-containing products. Passive and active exposure cannot be discriminated definitively, although a cutoff of 10 ng/mL cotinine is frequently used for surgery qualification purposes. For smoking cessation programs or compliance testing, the absence of expected drug(s) and/or drug metabolite(s) may indicate non-compliance, inappropriate timing of specimen collection relative to drug administration, poor drug absorption, or limitations of testing. This test cannot distinguish between use of tobacco and purified nicotine products. The concentration value must be greater than or equal to the cutoff to be reported as positive. This test was developed and its performance characteristics determined by [employer]. It has not been cleared or approved by the [place] Food and Drug Administration. This test was performed in a CLIA certified laboratory and is intended for clinical purposes. Performed By: [employer] [address] [place] [address] Template Clerk: Carson Woodson MD, PhD Cotinine <5 ng/mL 01/19/2023 12:43 AM CDT [facility]) Blood BLOOD SPECIMEN / Unknown Lab Venipuncture / Unknown 01/15/2023 10:29 AM CDT 01/15/2023 10:52 AM CDT Steven Wiggins MD LAB - CHEMISTRY ORDERABLES [facility]) [address] [place] [address] * (ABNORMAL) LIPID PROFILE (01/15/2023 10:29 AM CDT) Pathologist [facility] Cholesterol Total 249(H) <200 mg/dL 01/15/2023 11:25 AM CDT [facility] HDL 74 >40 mg/dL 01/15/2023 11:25 AM T [facility] Comment: ATP III Classification of HDL Cholesterol: <40 mg/dL: Considered a major risk factor. >60 mg/dL: Considered a negative risk factor. LDL Calculated 158(H) <100 mg/dL 01/15/2023 11:25 AM T [facility] Comment: ATP III Classification of LDL Cholesterol: <100 mg/dL: Optimal 100 - 129 mg/dL: Near Optimal/Above Optimal 130 - 159 mg/dL: Borderline High 160 - 189 mg/dL: High >190 mg/dL: Very High Triglycerides 83 <150 mg/dL 01/15/2023 11:25 AM CDT [facility] Comment: ATP III Classification of Triglycerides: <150 mg/dL: Normal 150 - 199 mg/dL: Borderline High 200 - 400 mg/dL: High >500 mg/dL: Very High Blood BLOOD SPECIMEN / Unknown Lab Venipuncture / Unknown 01/15/2023 10:29 AM CDT 01/15/2023 10:58 AM CDT Steven Wiggins MD LAB - CHEMISTRY ORDERABLES [facility] [address] [place] [address], [facility] [phone] * HLA TYPING DNA LOW RESOLUTION DR,DQ (01/15/2023 10:29 AM CDT) DR DQ Low Resolution DRB1-1 *03(DR17) 01/26/2023 5:19 PM CDT [facility] ([facility]) DR DQ Low Resolution DRB1-2 *07 01/26/2023 5:19 PM CDT [facility] ([facility]) DR DQ Low Resolution DQB1-1 *02 01/26/2023 5:19 PM CDT [facility] ([facility]) DR DQ Low Resolution DQB1-2 - 01/26/2023 5:19 PM CDT [facility] ([facility]) DR DQ Low Resolution DRB3-1 *01 01/26/2023 5:19 PM CDT [facility] ([facility]) DR DQ Low Resolution DRB3-2 Negative 01/26/2023 5:19 PM CDT [facility] ([facility]) DR DQ Low Resolution DRB4-1 *01 01/26/2023 5:19 PM CDT [facility] ([facility]) DR DQ Low Resolution DRB4-2 Negative 01/26/2023 5:19 PM CDT [facility] ([facility]) DR DQ Low Resolution DRB5-1 Negative 01/26/2023 5:19 PM CDT [facility] ([facility]) DR DQ Low Resolution DRB5-2 Negative 01/26/2023 5:19 PM CDT [facility] ([facility]) DR DQ Low Resolution Methodology Real Time PCR 01/26/2023 5:19 PM CDT [facility] ([facility]) Comment DR DQ Low Resolution - 01/26/2023 5:19 PM CDT [facility] ([facility]) DR DQ Low Resolution test date 01/26/2023 01/26/2023 5:19 PM CDT [facility] ([facility]) Comment: This test was developed and its performance characteristics determined by the [facility]. It has not been cleared or approved by the U.S. Food and Drug Administration. The FDA has determined that such clearance or approval is not necessary. This test is used for clinical purposes. It should not be regarded as investigational or for research. This laboratory is certified under the Clinical Laboratory Improvement Amendments of 1988 (CLIA-88) as qualified to perform high complexity clinical laboratory testing. CLIA ID# [id number] Performed at: Formerly [facility], [address] [place] [id number] Gimp Tacker:Dr. Chito Mcfadden, PhD, Blood BLOOD SPECIMEN / Unknown Lab Venipuncture / Unknown 01/15/2023 10:29 AM CDT 01/15/2023 10:51 AM CDT Steven Wiggins MD LAB - BLOOD BAN K ORDERABLES [facility] ([facility]) [address] [place] [id number] * HLA TYPING DNA LOW RESOLUTION A,B,C (01/15/2023 10:29 AM CDT) ABC DNA A1 *01 01/26/2023 5:19 PM CDT [facility] ([facility]) ABC DNA A2 *29 01/26/2023 5:19 PM CDT [facility] ([facility]) ABC DNA B1 *08 01/26/2023 5:19 PM CDT [facility] ([facility]) ABC DNA B2 *44 01/26/2023 5:19 PM CDT [facility] ([facility]) ABC DNA BW1 6 01/26/2023 5:19 PM CDT [facility] ([facility]) ABC DNA BW2 4 01/26/2023 5:19 PM CDT [facility] ([facility]) ABC DNA C1 *07 01/26/2023 5:19 PM CDT [facility] ([facility]) ABC DNA C2 *16 01/26/2023 5:19 PM CDT [facility] ([facility]) ABC DNA Methodology Real Time PCR 01/26/2023 5:19 PM CDT [facility] ([facility]) Comment ABC DNA - 5:19 PM CDT [facility] ([facility]) ABC DNA Test Date 3 01/26/2023 5:19 PM CDT [facility] ([facility]) Comment: This test was developed and its performance characteristics determined by the [facility]. It has not been cleared or approved by the U.S. Food and Drug Administration. The FDA has determined that such clearance or approval is not necessary. This test is used for clinical purposes. It should not be regarded as investigational or for research. This laboratory is certified under the Clinical Laboratory Improvement Amendments of 1988 (CLIA-88) as qualified to perform high complexity clinical laboratory testing. CLIA ID# [id number] Performed at: Formerly [facility], [address] [place] [id number] Gimp Tacker:Dr. Chito Mcfadden, PhD, Blood BLOOD SPECIMEN / Unknown Lab Venipuncture / Unknown 01/15/2023 10:29 AM CDT 01/15/2023 10:51 AM CDT Steven Wiggins MD LAB - BLOOD BAN K ORDERABLES [facility] ([facility]) [address] [place] [id number] * HIV 1/0/2 RFLX TO WB DONOR (01/15/2023 10:29 AM CDT) [facility] HIV-1/HIV-2 Ab + p24 Ag Negative Negative 01/16/2023 7:08 PM CDT [facility] ([facility]) Comment: Test performed with [employer] s HIV Ag/Ab kit. The HIV Ag/Ab Combo Kit can detect: HIV-1 (groups M and O)/HIV-2 Ab, HIV-1 p24 Ag Blood BLOOD SPECIMEN / Unknown Lab Venipuncture / Unknown 01/15/2023 10:29 AM CDT 01/15/2023 10:51 AM CDT Narrative [facility] ([facility]) - 01/16/2023 7:08 PM CDT Performed at: - [employer] [address] [place] [id number] Gimp Tacker: Junior Alvarado [facility], Phone: [phone] Steven Wiggins MD LAB - CHEMISTRY ORDERABLES Performing Organization Address City/[facility]/ZIP Co de Phone Number [facility] ([facility]) [address] [place] [address] * (ABNORMAL) HEPATITIS C AB SCREEN RFLX NAAT QUANT (01/15/2023 10:29 AM CDT) [facility] Hepatitis C Antibody Indetermi patt(A) Non-react kiran 01/15/2023 1:15 PM CDT [facility] Comment:Serum for supplement al Hepatitis C quantitative RNA PCR testing will be reflexively sent out by the lab. Blood BLOOD SPECIMEN / Unknown Lab Venipuncture / Unknown 01/15/2023 10:29 AM CDT 01/15/2023 10:47 AM CDT Steven Wiggins MD LAB - CHEMISTRY ORDERABLES [facility] [address] [place] [address], [facility] [phone] * HEPATITIS B SURFACE ANTIGEN W RFLX CONFIRMATION (01/15/2023 10:29 AM CDT) Hepatitis B Virus Surface Antigen Non-reacti ve Non-reacti ve 01/15/2023 1:35 PM CDT [facility] Blood BLOOD SPECIMEN / Unknown Lab Venipuncture / Unknown 01/15/2023 10:29 AM CDT 01/15/2023 10:47 AM CDT Steven Wiggins MD LAB - CHEMISTRY ORDERABLES Performing Organization Address City/[facility]/ZIP Co de Phone Number [address] [address], [facility] [phone] * HEPATITIS B SURFACE ANTIBODY (01/15/2023 10:29 AM CDT) Pathologist [facility] Hepatitis B Virus Surface Antibody Non-react kiran Non-react kiran 01/15/2023 1:41 PM CDT [facility] Comment: < 8 mIU/mL Hepatitis B surface Antibody (HBsAb). Nonreactive for HBsAb - individual is considered not immune to Hepatitis B Virus infection. Hepatitis B Surface Antibody Quantitative 0.0 <8.0 mIU/mL 01/15/2023 1:41 PM CDT [facility] Comment: Hepatitis B Surface Antibody Numeric Result Interpretation: Nonreactive: <8.0 mIU/mL Indeterminate: 8.0 - 12.0 mIU/mL Reactive: >12.0 mIU/mL Blood BLOOD SPECIMEN / Unknown Lab Venipuncture / Unknown 01/15/2023 10:29 AM CDT 01/15/2023 10:47 AM CDT Steven Wiggins MD LAB - CHEMISTRY ORDERABLES Performing Organization Address City/[facility]/ZIP Co de Phone Number [address] [address], [facility] [phone] * HEPATITIS B CORE ANTIBODY TOTAL (01/15/2023 10:29 AM CDT) Pathologist [facility] HBc Antibody Total Non-reacti ve Non-reacti ve 01/15/2023 1:42 PM CDT [facility] Blood BLOOD SPECIMEN / Unknown Lab Venipuncture / Unknown 01/15/2023 10:29 AM CDT 01/15/2023 10:47 AM CDT Steven Wiggins MD LAB - CHEMISTRY ORDERABLES Performing Organization Address [facility] Co de Phone Number [facility] [address] [place] [address], [facility] [phone] * HEMOGLOBIN A1C (01/15/2023 10:29 AM CDT) Pathologist [facility] Hemoglobin A1c 5.6 <=5.6 % 01/16/2023 8:44 AM CDT [facility] Estimated Average Glucose 114 mg/dL 01/16/2023 8:44 AM CDT [facility] Comment: HbA1c Interpretation: Normal : < 5.7% Pre-diabetes: 5.7-6.4% Diabetes: Equal to or greater than 6.5% Test results diagnostic of diabetes should be repeated for confirmation. Treatment target values recommended by ADA and other clinical organizations should be used to evaluate metabolic control in patients. Reference: [place] [employer], Standards of Care in Diabetes -2020 In patients 70 years and older consider HbA1c target range of 7.0-7.5% (Reference: Randy Knowles et al. JAMDA. 2012) The Sebia assay for the measurement of HbA1c is a National Glycohemoglobin Standardization Program (NGSP) certified method. Blood BLOOD SPECIMEN / Unknown Lab Venipuncture / Unknown 01/15/2023 10:29 AM CDT 01/15/2023 10:58 AM CDT Steven Wiggins MD LAB - CHEMISTRY ORDERABLES Performing Organization Address [facility]/ZIP Co de Phone Number [facility] [address] [place] [address], [place] [phone] * (ABNORMAL) TIMI-KHOURY VIRUS AB VIRAL CAPSID IGG/IGM (01/15/2023 10:29 AM CDT) [facility] Timi-Khoury Viral Capsid Antigen Antibody IgG 225.0(H) 0.0 - 17.9 U/mL 01/16/2023 2:10 PM CDT [facility] ([facility]) Comment: Negative <18.0 Equivocal 18.0 - 21.9 Positive >21.9 Timi-Khoury Viral Capsid Antigen Antibody IgM <36.0 0.0 - 35.9 U/mL 01/16/2023 2:10 PM CDT [facility] ([facility]) Comment: Negative <36.0 Equivocal 36.0 - 43.9 Positive >43.9 Blood BLOOD SPECIMEN / Unknown Lab Venipuncture / Unknown 01/15/2023 10:29 AM CDT 01/15/2023 3:29 PM CDT Narrative [facility] ([facility]) - 01/16/2023 2:10 PM CDT Performed at: [address] [place] [id number] Gimp Tacker: Vlad Mcdonald PhD, Phone: [phone] Steven Wiggins MD LAB - SEROLOGY ORDERABLES Performing Organization Address [facility] de Phone Number [facility] [facility] [employer] ([facility]) [address] [place] [phone], [place] * CYTOMEGALOVIRUS ANTIBODY IGM BLOOD (01/15/2023 10:29 AM CDT) [facility] Cytomegalovirus Antibody IgM <30.0 0.0 - 29.9 AU/mL 01/17/2023 6:10 AM CDT [facility] ([facility]) Comment: Negative <30.0 Equivocal 30.0 - 34.9 Positive >34.9 A positive result is generally indicative of acute infection, reactivation or persistent IgM production. Blood BLOOD SPECIMEN / Unknown Lab Venipuncture / Unknown 01/15/2023 10:29 AM CDT 01/15/2023 10:52 AM CDT Narrative [facility] ([facility]) - 01/17/2023 6:10 AM CDT Performed at: [address] [place] [id number] Gimp Tacker: Vlad Mcdonald PhD, Phone: [phone] Steven Wiggins MD LAB - CHEMISTRY ORDERABLES Performing Organization Address [facility] Co de Phone Number [facility] ([facility]) [address] [place] [address] * CYTOMEGALOVIRUS ANTIBODY IGG BLOOD (01/15/2023 10:29 AM CDT) Pathologist [facility] Cytomegalovirus Antibody IgG >10.00 U/mL 01/17/2023 4:[address] [facility] [employer] ([facility]) Comment: INTERPRETIVE INFORMATION: Cytomegalovirus Antibody, IgG 0.59 U/mL or less......... Not Detected 0.6 - 0.69 U/mL........... Indeterminate-Repeat testing in 10-14 days may be helpful. 0.70 U/mL or greater...... Detected In immunocompromised patients, CMV serology (IgG or IgM antibody titers) may not be reliable and may be misleading in the diagnosis of acute or reactivation CMV disease. The preferred method for diagnosis is culture of virus and/or demonstration of viral antigen in peripheral white cells (buffy coat), bronchoalveolar lavage (BAL) cells, or tissue biopsies. This test should not be used for blood donor screening, associated re-entry protocols, or for screening Human Cell, Tissues and Cellular and Tissue-Based Products (HCT/P). The best evidence for current infection is a significant change on two appropriately timed specimens, where both tests are done in the same laboratory at the same time. Performed By: [employer] [address] [place] [address] Template Clerk: Carson oWodson MD, PhD Blood BLOOD SPECIMEN / Unknown Lab Venipuncture / Unknown 01/15/2023 10:29 AM CDT 01/15/2023 10:52 AM CDT Steven Wiggins MD LAB - CHEMISTRY ORDERABLES [facility] [employer] [facility]) [address] [place] [address] * ALCOHOL ETHYL BLOOD (01/15/2023 10:29 AM CDT) Pathologist [facility] Ethanol (mg/dL) <10 <=10 mg/dL 11:25 AM CDT [facility] Ethanol Calculated (g/dL) <0.010 <0.010 g/dL 01/15/2023 11:25 AM CDT [facility] Blood BLOOD SPECIMEN / Unknown Lab Venipuncture / Unknown 01/15/2023 10:29 AM CDT 01/15/2023 10:58 AM CDT Narrative [facility] - 01/15/2023 11:25 AM CDT Ethanol Interp <10: None Detected. Depression of RADARMAN: >100 mg/dl Potentially Critical: >250 mg/dl Potentially Fatal >400 mg/dl Ethanol in the patient's blood will contribute to the osmolar gap. Ethanol's contribution to the osmolar gap can be estimated by dividing the concentration of ethanol in mg/dL by 4.6. This test is for clinical use only and does not equal a CECILLE for legal purposes. Steven Wiggins MD LAB - CHEMISTRY ORDERABLES Performing Organization Address City/[facility]/ZIP Co de Phone Number [facility] [address] [place] [address], [facility] [phone] * PHOSPHORUS BLOOD (01/15/2023 10:29 AM CDT) Phosphorus 2.9 2.9 - 5.1 mg/dL 01/15/2023 11:25 AM CDT [facility] Blood BLOOD SPECIMEN / Unknown Lab Venipuncture / Unknown 01/15/2023 10:29 AM CDT 01/15/2023 10:58 AM CDT Steven Wiggins MD LAB - CHEMISTRY ORDERABLES Performing Organization Address City/[facility]/ZIP Co de Phone Number [facility] [address] [place] [address], [place] [phone] * PT-INR [facility] (01/15/2023 10:29 AM CDT) PT 13.0 12.1 - 14.8 Seconds 01/15/2023 11:22 AM CDT [facility] INR 1.0 See Comment 01/15/2023 11:22 AM CDT [facility] Comment:The suggested therap eutic range for standard coumadin (warfarin) therapy is an INR of 2.0-3.0. For high-risk patients (Mechanical Mitral Valve Prosthesis, etc.), the suggested prophylactic therapeutic range is an INR of 2.5-3.5. Blood BLOOD SPECIMEN / Unknown Lab Venipuncture / Unknown 01/15/2023 10:29 AM CDT 01/15/2023 10:58 AM CDT Steven Wiggins MD LAB - COAGULATI ON ORDERABLES Performing Organization Address [facility] Co de Phone Number [address] [address], [facility] [phone] * PTT [facility] (01/15/2023 10:29 AM CDT) APTT 28.5 23.0 - 38.4 Seconds 01/15/2023 11:22 AM CDT [facility] Comment:Suggested therapeuti c range for full dose I.V. unfractionated heparin therapy for venous thromboembolism is 71 to 109 seconds. Blood BLOOD SPECIMEN / Unknown Lab Venipuncture / Unknown 01/15/2023 10:29 AM CDT 01/15/2023 10:58 AM CDT Steven Wiggins MD LAB - COAGULATI ON ORDERABLES Performing Organization Address [facility] de Phone Number [address] [address], [facility] [phone] * QUANTIFERON-TB GOLD PLUS 4-TUBE (01/15/2023 10:29 AM CDT) QuantiFERON NIL 0.02 IU/mL 3:48 AM CDT [employer] ([facility]) Comment: Performed By: [employer] [address] [place] [id number] Template Clerk: Carson Woodson MD, PhD QuantiFERON TB Gold Plus Negative Negative 01/18/2023 3:48 AM CDT [employer] [facility]) Comment: Interpretive Data: Quantiferon TB Gold Plus Interferon gamma release is measured for specimens from each of the four collection tubes. A qualitative result (Negative, Positive, or Indeterminate) is based on interpretation of the four values, NIL, MITOGEN minus NIL (MITOGEN-NIL), TB1 minus NIL (TB1-NIL), and TB2 minus NIL (TB2-NIL). The NIL value represents nonspecific reactivity produced by the patient specimen. The MITOGEN-NIL value serves as the positive control for the patient specimen, demonstrating successful lymphocyte activity. The TB1-NIL tube specifically detects CD4+ lymphocyte reactivity, specifically stimulated by the TB1 antigens. The TB2-NIL tube detects both CD4+ and CD8+ lymphocyte reactivity, stimulated by TB2 antigens. An overall Negative result does not completely rule out TB infection. A false-positive result in the absence of other clinical evidence of TB infection is not uncommon. Refer to: Updated Guidelines for Using Interferon Gamma Release Assays to Detect Mycobacterium tuberculosis Infection --- [place], 2010 (http://www.cdc.gov/mmwr/preview/mmwrhtml/sy6460i0.htm), for more information concerning test performance in low-prevalence populations and use in occupational screening. QuantiFERON Plus TB1 Minus NIL 0.00 0.00 - 0.34 IU/mL 01/18/2023 3:[address] [facility] [employer] [facility]) QuantiFERON Plus TB2 Minus NIL 0.00 0.00 - 0.34 IU/mL 01/18/2023 3:48 AM CDT [facility]) QuantiFERON Mitogen Minus NIL >10.00 IU/mL 01/18/2023 3:[address] [facility] [employer] [facility]) Blood BLOOD SPECIMEN / Unknown Lab Venipuncture / Unknown 01/15/2023 10:29 AM CDT 01/15/2023 10:50 AM CDT Steven Wiggins MD LAB - CHEMISTRY ORDERABLES [facility] [employer] [facility]) [address] * STRONGYLOIDES ANTIBODY IGG (01/15/2023 10:29 AM CDT) [facility] Signature Strongyloides Antibody IgG 0.1 <=0.9 IV 01/18/2023 5:01 PM CDT [employer] ([facility]) Comment: INTERPRETIVE INFORMATION: Strongyloides Ab, IgG by EDGAR 0.9 IV or less....... Negative - No significant level of Strongyloides IgG antibody detected. 1.0 IV................Equivocal - The Strongyloides IgG antibody result is borderline and therefore inconclusive. Recommend retesting the patient in 2-4 weeks, if clinically indicated. 1.1 IV or greater ... Positive - IgG antibodies to Strongyloides detected, which may suggest current or past infection. False-positive results may occur with prior exposure to other helminth infections. Testing low-prevalence populations may also result in false-positive results. Performed By: [facility] [employer] [address] [place] [address] Template Clerk: Carson Woodson MD, PhD Blood BLOOD SPECIMEN / Unknown Lab Venipuncture / Unknown 01/15/2023 10:29 AM CDT 01/15/2023 10:52 AM CDT Steven Wiggins MD LAB - SEROLOGY ORDERABLES [facility]) [address] [place] [address] * SYPHILIS ANTIBODY CASCADING REFLEX (01/15/2023 10:29 AM CDT) Pathologist [facility] Treponema pallidum Antibody Non-react kiran Non-react kiran 01/15/2023 1:42 PM CDT [facility] Comment: No Laboratory evidence of syphilis infection. Note: Circulating antibodies may be low or undetectable in early infection. If recent exposure is suspected, re-draw sample in 2-4 weeks and repeat testing. Blood BLOOD SPECIMEN / Unknown Lab Venipuncture / Unknown 01/15/2023 10:29 AM CDT 01/15/2023 10:47 AM CDT Steven Wiggins MD LAB - SEROLOGY ORDERABLES [facility] [address] [place] [phone] [phone] * TRYPANOSOMA ANTIBODY IGG (01/15/2023 10:29 AM CDT) Trypan. cruzi IgG 0.3 <=1.0 IV 023 4:18 AM CDT [employer] ([facility]) Comment: INTERPRETIVE INFORMATION: Trypanosoma cruzi Ab, IgG 1.0 IV or less......Negative - No significant level of Trypanosoma cruzi IgG antibody detected. 1.1 IV..............Equivocal - Questionable presence of Trypanosoma cruzi IgG antibody detected. Repeat testing in 10-14 days may be helpful. 1.2 IV or greater...Positive - IgG antibodies to Trypanosoma cruzi detected, which may suggest current or past infection. This assay should not be used for blood donor screening or associated re-entry protocols, or for screening Human Cell and Cellular Tissue-Based Products (HCT/Ps). According to the CDC, at least two different serologic tests should be used to make the laboratory diagnosis of chronic Chagas Disease, as no single serologic test is sufficiently sensitive and specific. Performed By: [employer] [address] [place] [address] Template Clerk: Carson Woodson MD, PhD Blood BLOOD SPECIMEN / Unknown Lab Venipuncture / Unknown 01/15/2023 10:29 AM CDT 01/15/2023 10:52 AM CDT Steven Wiggins MD LAB - SEROLOGY ORDERABLES [facility] [employer] [facility]) [address] * TYPE + SCREEN PANEL (01/15/2023 10:29 AM CDT) Antibody Screen NEG 3 12:05 PM CDT [facility] ABO Rh O POS 01/15/2023 12:05 PM CDT [facility] Blood Bank BLOOD SPECIMEN / Unknown Lab Venipuncture / Unknown 01/15/2023 10:29 AM CDT 01/15/2023 11:24 AM CDT Steven Wiggins MD LAB - BLOOD BAN K ORDERABLES Performing Organization Address City/[facility]/ZIP Co de Phone Number [facility] [address] [place] [phone], [facility] [phone] * URIC ACID BLOOD (01/15/2023 10:29 AM CDT) Uric Acid 3.8 2.6 - 6.0 mg/dL 01/15/2023 11:25 AM CDT [facility] Blood BLOOD SPECIMEN / Unknown Lab Venipuncture / Unknown 01/15/2023 10:29 AM CDT 01/15/2023 10:58 AM CDT Steven Wiggins MD LAB - CHEMISTRY ORDERABLES Performing Organization Address [facility] Co de Phone Number [facility] [address] [address], [facility] [phone] * WEST NILE VIRUS ANTIBODY IGG/IGM PANEL (01/15/2023 10:29 AM CDT) West Nile IgG Ab 0.50 <=1.29 IV 01/19/20 9:53 PM CDT [facility] ([facility]) Comment: INTERPRETIVE INFORMATION: West Nile Virus Ab, IgG by EDGAR, Serum 1.29 IV or less ........ Negative - No significant level of West Nile virus IgG antibody detected. 1.30 - 1.49 IV ......... Equivocal - Questionable presence of West Nile virus IgG antibody detected. Repeat testing in 10-14 days may be helpful. 1.50 IV or greater ..... Positive - Presence of IgG antibody to West Nile virus detected, suggestive of current or past infection. This test is intended to be used as a semi-quantitative means of detecting West Nile virus-specific IgG in serum samples in which there is a clinical suspicion of West Nile virus infection. This test should not be used solely for quantitative purposes, nor should the results be used without correlation to clinical history or other data. Because other members of the Flaviviridae family, such as St.C[place] encephalitis virus, show extensive cross-reactivity with West Nile virus, serologic testing specific for these species should be considered. Seroconversion between acute and convalescent sera is considered strong evidence of current or recent infection. The best evidence for infection is a significant change on two appropriately timed specimens, where both tests are done in the same laboratory at the same time. West Nile IgM Ab 0.02 <=0.89 IV 01/19/20 9:[address] [facility] [employer] ([facility]) Comment: INTERPRETIVE INFORMATION: West Nile Virus Ab, IgM by EDGAR, Serum 0.89 IV or less ...... Negative - No significant level of West Nile virus IgM antibody detected. 0.90-1.10 IV ......... Equivocal - Questionable presence of West Nile virus IgM antibody detected. Repeat testing in 10-14 days may be helpful. 1.11 IV or greater ... Positive - Presence of IgM antibody to West Nile virus detected, suggestive of current or recent infection. This test is intended to be used as a semi-quantitative means of detecting West Nile virus-specific IgM in serum samples in which there is a clinical suspicion of West Nile virus infection. This test should not be used solely for quantitative purposes, nor should the results be used without correlation to clinical history or other data. Because other members of the Flaviviridae family, such as [place] encephalitis virus, show extensive cross-reactivity with West Nile virus, serologic testing specific for these species should be considered. Seroconversion between acute and convalescent sera is considered strong evidence of current or recent infection. The best evidence for infection is a significant change on two appropriately timed specimens, where both tests are done in the same laboratory at the same time. Performed By: [employer] [address] [place] [address] Template Clerk: Carson Woodson MD, PhD Blood BLOOD SPECIMEN / Unknown Lab Venipuncture / Unknown 01/15/2023 10:29 AM CDT 01/15/2023 10:52 AM CDT Steven Wiggins MD LAB - CHEMISTRY ORDERABLES [facility] [employer] ([facility]) [address] [place] [address], [facility] * CYSTATIN C WITH REFLEX TO EGFR (01/15/2023 10:29 AM CDT) [facility] Cystatin C 1.2 0.5 - 1.2 mg/L 01/16/2023 11:[address] [facility] [employer] ([facility]) Comment: Performed By: [facility] [employer] [address] [place] [address] Template Clerk: Carson Woodson MD, PhD Blood BLOOD SPECIMEN / Unknown Lab Venipuncture / Unknown 01/15/2023 10:29 AM CDT 01/15/2023 10:51 AM CDT Steven Wiggins MD LAB - CHEMISTRY ORDERABLES [facility]) [address] * (ABNORMAL) COMPREHENSIVE METABOLIC PANEL (01/15/2023 10:29 AM CDT) [facility] BUN 10 7 - 26 mg/dL 01/15/2023 11:25 AM T [facility] Creatinine 0.81 0.56 - 0.96 mg/dL 01/15/2023 11:25 AM [facility] Sodium 138 136 - 145 mmol/L 01/15/2023 11:25 AM [facility] Potassium 3.7 3.5 - 4.5 mmol/L 01/15/2023 11:25 AM [facility] Chloride 104 98 - 107 mmol/L 01/15/2023 11:25 AM [facility] CO2 27 22 - 29 mmol/L 01/15/2023 11:25 AM [facility] Glucose 83 70 - 115 mg/dL 01/15/2023 11:25 AM [facility] Calcium 9.2 8.4 - 10.2 mg/dL 01/15/2023 11:25 AM [facility] Protein Total 6.7 6.0 - 8.3 g/dL 01/15/2023 11:25 AM [facility] Albumin 3.8 3.4 - 5.0 g/dL 01/15/2023 11:25 AM [facility] Bilirubin Total 0.6 0.2 - 1.2 mg/dL 01/15/2023 11:25 AM [facility] Alkaline Phosphatase 80 40 - 150 U/L 01/15/2023 11:25 AM [facility] ALT 14 5 - 55 U/L 01/15/2023 11:25 AM [facility] AST 20 5 - 34 U/L 01/15/2023 11:25 AM [facility] Anion Gap 11 8 - 18 01/15/2023 11:25 AM [facility] BUN/Creatinine Ratio 12 7 - 23 01/15/2023 11:25 AM [facility] Osmolality Calculated 284 270 - 300 mOsm/kg 01/15/2023 11:25 AM [facility] Albumin/Globulin Ratio 1.3 1.1 - 2.3 01/15/2023 11:25 AM [facility] eGFR by CKD-EPI 79(L) >=90 mL/min/1.7 3 m2 01/15/2023 11:25 AM [facility] Blood BLOOD SPECIMEN / Unknown Lab Venipuncture / Unknown 01/15/2023 10:29 AM CDT 01/15/2023 10:58 AM CDT Steven Wiggins MD LAB - CHEMISTRY ORDERABLES Performing Organization Address City/State/[facility] Co de Phone Number [facility] [address] [place] [address], [facility] [phone] * CBC WITH DIFFERENTIAL (01/15/2023 10:29 AM CDT) WBC 3.6 3.5 - 10.5 10 3/uL 01/15/2023 11:07 AM [facility] RBC 4.27 3.80 - 5.20 10 6/uL 01/15/2023 11:07 AM [facility] Hemoglobin 13.3 12.0 - 15.6 g/dL 01/15/2023 11:07 AM [facility] Hematocrit 40.5 35.0 - 45.0 % 01/15/2023 11:07 AM [facility] MCV 94.8 80.7 - 98.3 fL 01/15/2023 11:07 AM [facility] MCH 31.1 26.7 - 34.0 pg 01/15/2023 11:07 AM [facility] MCHC 32.8 30.8 - 35.9 g/dL 01/15/2023 11:07 AM [facility] RDW-SD 46.2 36.0 - 50.0 fL 01/15/2023 11:07 AM [facility] RDW-CV 13.2 11.2 - 14.8 % 01/15/2023 11:07 AM [facility] Platelet Count 258 150 - 400 10 3/uL 01/15/2023 11:07 AM [facility] MPV 10.1 9.4 - 12.9 fL 01/15/2023 11:07 AM [facility] nRBC Absolute 0.00 0 10 3/uL 01/15/2023 11:07 AM [facility] nRBC Auto 0.0 0 /100 WBC 01/15/2023 11:07 AM [facility] Neutrophils % 54.6 35.0 - 70.0 % 01/15/2023 11:07 AM [facility] Lymphocytes % 31.2 20.0 - 43.0 % 01/15/2023 11:07 AM [facility] Monocytes % 10.6 5.0 - 13.0 % 01/15/2023 11:07 AM [facility] Eosinophils % 2.2 0.0 - 6.0 % 01/15/2023 11:07 AM [facility] Basophil % 1.1 0.0 - 2.0 % 01/15/2023 11:07 AM [facility] Neutrophils Absolute 1.96 1.60 - 7.00 10 3/uL 01/15/2023 11:07 AM [facility] Lymphocyte Absolute 1.12 1.10 - 3.90 10 3/uL 01/15/2023 11:07 AM [facility] Monocytes Absolute 0.38 0.26 - 1.07 10 3/uL 01/15/2023 11:07 AM [facility] Eosinophils Absolute 0.08 0.00 - 0.47 10 3/uL 01/15/2023 11:07 AM CDT [facility] Basophils Absolute 0.04 0.00 - 0.08 10 3/uL 01/15/2023 11:07 AM CDT [facility] Immature Granulocytes % 0.3 0.0 - 1.0 % 01/15/2023 11:07 AM CDT [facility] Immature Granulocytes Absolute 0.01 01/15/2023 11:07 AM T [facility] Blood BLOOD SPECIMEN / Unknown Lab Venipuncture / Unknown 01/15/2023 10:29 AM CDT 01/15/2023 10:50 AM CDT Steven Wiggins MD LAB - HEMATOLOG Y ORDERABLES Performing Organization Address City/State/[facility] Co de Phone Number [facility] [address] [place] [phone], [facility] [phone] documented in this encounter Visit Diagnoses Diagnosis Willing to be kidney donor- Primary Willing to be kidney donor Willing to be kidney donor documented in this encounter Care Teams Slide Developer Relationship Specialty Start Date End Date Unknown, Provider PCP - General 01/13/23 documented as of this encounter
--- OUTSIDE RECORDS SUMMARY | 2024-12-06 17:31 | XMS_ITS | Patient Health Summary ---
Author Organization [facility] [employer] ([employer]) Address [address] [place] [address] Care Team Providers Care Street Light Inspector Name Role Phone Unknown, Provider Primary Care Provider Unavaila ble Note from [facility] [employer] ([employer]) [facility],non-owned Affiliates and Associated Physician Practices is amultiple site organization consisting of ambulatory clinics and hospital sitesin [place], [place], [place] and [place]. This disclosure is being madepursuant to the Care Everywhere program and may not contain all information available regarding this patient. Last updated 18.[facility] [employer] ([employer]) Allergies No known active allergies Medications Be [...] on file Sexual Orientation Not on file Procedures * CT ANGIO ABDOMEN PELVIS(Performed 01/15/2023) Performed for Willing to be kidney donor * CREATININE - POCT INTERFACED(Performed 01/15/2023) * XR CHEST 2VW(Performed 01/15/2023) Performed for Willing to be kidney donor * MICROALB/CREAT RATIO URINE RANDOM PANEL(Performed 01/15/2023) Performed for Willing to be kidney donor * URINALYSIS W/MICROSCOPIC NO CULTURE(Performed 01/15/2023) Performed for Willing to be kidney donor * URINE DRUG SCREEN IMMUNOASSAY(Performed 01/15/2023) Performed for Willing to be kidney donor * CULTURE URINE(Performed 01/15/2023) Performed for Willing to be kidney donor * EKG 12-LEAD(Performed 01/15/2023) Performed for Willing to be kidney donor * HLA TYPING DNA LOW RESOLUTION DR,DQ(Performed 01/15/2023) Performed for Willing to be kidney donor * HLA TYPING DNA LOW RESOLUTION A,B,C(Performed 01/15/2023) Performed for Willing to be kidney donor * TYPE + SCREEN PANEL(Performed 01/15/2023) Performed for Willing to be kidney donor * CYSTATIN C REFLEX(Performed 01/15/2023) Performed for Willing to be kidney donor * HEPATITIS C RNA QUANTITATIVE(Performed 01/15/2023) Performed for Willing to be kidney donor * NICOTINE + METABOLITES BLOOD(Performed 01/15/2023) Performed for Willing to be kidney donor * LIPID PROFILE(Performed 01/15/2023) Performed for Willing to be kidney donor * HIV 1/0/2 RFLX TO WB DONOR(Performed 01/15/2023) Performed for Willing to be kidney donor * HEPATITIS C AB SCREEN RFLX NAAT QUANT(Performed 01/15/2023) Performed for Willing to be kidney donor * HEPATITIS B SURFACE ANTIGEN W RFLX CONFIRMATION(Performed 01/15/2023) Performed for Willing to be kidney donor * HEPATITIS B SURFACE ANTIBODY(Performed 01/15/2023) Performed for Willing to be kidney donor * HEPATITIS B CORE ANTIBODY TOTAL(Performed 01/15/2023) Performed for Willing to be kidney donor * HEMOGLOBIN A1C(Performed 01/15/2023) Performed for Willing to be kidney donor * TIMI-KHOURY VIRUS AB VIRAL CAPSID IGG/IGM(Performed 01/15/2023) Performed for Willing to be kidney donor * CYTOMEGALOVIRUS ANTIBODY IGM BLOOD(Performed 01/15/2023) Performed for Willing to be kidney donor * CYTOMEGALOVIRUS ANTIBODY IGG BLOOD(Performed 01/15/2023) Performed for Willing to be kidney donor * ALCOHOL ETHYL BLOOD(Performed 01/15/2023) Performed for Willing to be kidney donor * PHOSPHORUS BLOOD(Performed 01/15/2023) Performed for Willing to be kidney donor * PT-INR [facility](Performed 01/15/2023) Performed for Willing to be kidney donor * PTT [facility](Performed 01/15/2023) Performed for Willing to be kidney donor * QUANTIFERON-TB GOLD PLUS 4-TUBE(Performed 01/15/2023) Performed for Willing to be kidney donor * STRONGYLOIDES ANTIBODY IGG(Performed 01/15/2023) Performed for Willing to be kidney donor * SYPHILIS ANTIBODY CASCADING REFLEX(Performed 01/15/2023) Performed for Willing to be kidney donor * TRYPANOSOMA ANTIBODY IGG(Performed 01/15/2023) Performed for Willing to be kidney donor * URIC ACID BLOOD(Performed 01/15/2023) Performed for Willing to be kidney donor * [place] VIRUS ANTIBODY IGG/IGM PANEL(Performed 01/15/2023) Performed for Willing to be kidney donor * CYSTATIN C WITH EGFR(Performed 01/15/2023) Performed for Willing to be kidney donor * COMPREHENSIVE METABOLIC PANEL(Performed 01/15/2023) Performed for Willing to be kidney donor * CBC W AUTO DIFFERENTIAL(Performed 01/15/2023) Performed for Willing to be kidney donor Results * CT ANGIO ABDOMEN PELVIS (01/15/2023 [...] was drafted by Dr. Henrique Camejo MD. (co founder and president). ISavana MD have personally reviewed and interpreted this examination/study. > Interpreting Provider: Savana Tao MD on 01/15/2023 5:23 PM Narrative 01/15/2023 5:23 PM CDT PROCEDURE: CT ANGIO ABDOMEN PELVIS, DATE/TIME OF EXAM: 01/15/2023 11:30 AM, LOCATION [facility] INDICATION: Z00.5: Willing to be kidney donor [...] the abdomen and pelvis. A delayed AP golf course designer view of the abdomen and pelvis was [...] DATE/TIME OF EXAM: 01/15/2023 11:30 AM, LOCATION [facility] INDICATION: Z00.5: Willing to be kidney donor [...] the abdomen and pelvis. A delayed AP golf course designer viewof the abdomen and pelvis was obtained. [...] the superior pole of the right kidney (, image 62). There is a 3 mm [...] drafted by Dr. Henrique Camejo MD. (Radiologyresident). ISavana MD have personally reviewed and interpreted this examination/study. > Interpreting Provider: Savana Tao MD on 01/15/2023 5:23 PM Steven Wiggins MD CT ORDERABLES * (ABNORMAL) CREATININE - POCT INTERFACED (01/15/2023 11:10 AM CDT) Creatinine POCT 0.73 0.30 - 1.30 mg/dL 01/15/2023 11:16 AM CDT [facility] eGFR 89(L) >90 mL/min/1.7 3 m2 01/15/2023 11:16 AM CDT [facility] Blood BLOOD SPECIMEN / Unknown 01/15/2023 11:10 AM CDT 01/15/2023 11:16 AM CDT Steven Wiggins MD LAB - POINT OF CARE ORDERABLES [facility] [address] [place] [address], [facility] [phone] * XR CHEST 2VW (01/15/2023 10:51 AM CDT) Anatomical Region Laterality Modality Chest Radiographic Lin ging 01/15/2023 2:01 PM CDT Narrative 01/16/2023 12:33 PM CDT PROCEDURE: XR CHEST 2VW, DATE/TIME OF EXAM: 01/15/2023 10:51 AM, LOCATION [facility] INDICATION: Z00.5: Willing to be kidney donor COMPARISON: None. FINDINGS/IMPRESSION: There is no focal consolidation, pleural effusion, or pneumothorax. The cardiomediastinal silhouette is normal. The visible bony thorax is intact. Report dictated by Juanjose Munguia DO (vice president payment). Mallory House MD have personally reviewed and interpreted this examination/study. > Interpreting Provider: Mallory Conteh MD on 01/16/2023 12:33 PM Procedure Note Mallory Conteh MD - 01/16/2023 PROCEDURE: XR CHEST 2VW, DATE/TIME OF EXAM: 01/15/2023 10:51 AM, LOCATION [facility] INDICATION: Z00.5: Willing to be kidney donor COMPARISON: None. FINDINGS/IMPRESSION: There is no focal consolidation, pleural effusion, or pneumothorax. The cardiomediastinal silhouette is normal. The visible bony thorax isintact. Report dictated by Juanjose Munguia DO (vice president payment). Mallory House MD have personally reviewed and interpreted this examination/study. > Interpreting Provider: Mallory Conteh MD on 01/16/2023 12:33 PM Steven Wiggins MD DIAGNOSTIC IMAG ING ORDERABLES * (ABNORMAL) URINALYSIS W/MICROSCOPIC NO CULTURE (01/15/2023 10:43 AM CDT) Color UA Colorless(A ) Straw, Yellow 01/15/2023 11:27 AM [facility] Clarity UA Clear Clear 01/15/2023 11:27 AM [facility] Specific [place] UA 1.001(L) 1.005 - 1.030 01/15/2023 11:27 AM [facility] pH UA 7.0 5.0 - 8.0 pH 01/15/2023 11:27 AM [facility] Protein UA Negative Negative 01/15/2023 11:27 AM [facility] Glucose UA Negative Negative 01/15/2023 11:27 AM [facility] Ketone UA Negative Negative 01/15/2023 11:27 AM [facility] Bilirubin UA Negative Negative 01/15/2023 11:27 AM [facility] Blood UA Negative Negative 01/15/2023 11:27 AM [facility] Nitrite UA Negative Negative 01/15/2023 11:27 AM [facility] Leukocyte Esterase Negative Negative 01/15/2023 11:27 AM [facility] Urobilinogen UA Negative Negative mg/dL 01/15/2023 11:27 AM [facility] RBC UA 0-2 None Seen, 0-2, 3-5 /HPF 01/15/2023 11:27 AM [facility] WBC UA 0-5 None Seen, 0-5 /HPF 01/15/2023 11:27 AM [facility] Squamous Epithelial Cells UA None Seen None Seen, 0-2, 3-5 /HPF 01/15/2023 11:27 AM [facility] Urine URINE SPECIMEN OBTAINED BY CLEAN CATCH PROCEDURE / Unknown Collection / Unknown 01/15/2023 10:43 AM CDT 01/15/2023 10:57 AM CDT [facility] - 01/15/2023 11:27 AM CDT Steven Wiggins MD LAB - URINALYSI S ORDERABLES Performing Organization Address City/State/[facility] Co de Phone Number [address] [address], [facility] [phone] * (ABNORMAL) MICROALB/CREAT RATIO URINE RANDOM PANEL (01/15/2023 10:43 AM CDT) Albumin Random Urine <5.0 Not Established ug/mL 01/15/2023 11:28 AM [facility] Creatinine Urine 11 Not Established mg/dL 01/15/2023 11:28 AM [facility] Urine Albumin/Creati nine Ratio <45(H) <30 mg/g 01/15/2023 11:28 AM [facility] Albumin/Creati nine Ratio Urine See Comment <30 mg/g 01/15/2023 11:28 AM [facility] Comment:Unable to calculate the Urine Albumin/Creatinine Ratio due to one or more analyte concentration(s) being outside the measuring limits of the instrument. Urine URINE SPECIMEN OBTAINED BY CLEAN CATCH PROCEDURE / Unknown Collection / Unknown 01/15/2023 10:43 AM CDT 01/15/2023 10:57 AM CDT Steven Wiggins MD LAB - URINE SILVIO MARLENI ORDERABLES [facility] [address] [place] [address], [facility] [phone] * CULTURE URINE (01/15/2023 10:43 AM CDT) Culture Urine <10,000 CFU/mL urogenital chau LORNA 01/16/2023 2:37 PM CDT [facility] Urine URINE SPECIMEN OBTAINED BY CLEAN CATCH PROCEDURE / Unknown Collection / Unknown 01/15/2023 10:43 AM CDT 01/15/2023 11:28 AM CDT Steven Wiggins MD LAB - MICROBIOL OGY ORDERABLES Performing Organization Address City/[facility]/ZIP Co de Phone Number [facility] [address] [place] [address], [facility] [phone] * URINE DRUG SCREEN IMMUNOASSAY (01/15/2023 10:43 AM CDT) Amphetamines Screen Urine Negative Negative: < 1000 ng/mL 01/15/2023 11:28 AM [facility] Barbiturates Screen Urine Negative Negative: < 200 ng/mL 01/15/2023 11:28 AM [facility] Benzodiazepine Screen Urine Negative Negative: < 200 ng/mL 01/15/2023 11:28 AM [facility] Opiates Urine Negative Negative: < 300 ng/mL 01/15/2023 11:28 AM [facility] Cocaine Metabolites Urine Negative Negative: < 300 ng/mL 01/15/2023 11:28 AM [facility] Phencyclidine Screen Urine Negative Negative: < 25 ng/ml 01/15/2023 11:28 AM [facility] Cannabinoids Screen Urine Negative Negative: <50 ng/mL 01/15/2023 11:28 AM [facility] Methadone Screen Urine Negative Negative: < 300 ng/mL 01/15/2023 11:28 AM [facility] Fentanyl Screen Urine Negative Negative: <1.5 ng/mL 01/15/2023 11:28 AM CDT [facility] Urine URINE / Unknown Collection / Unknown 01/15/2023 10:43 AM CDT 01/15/2023 10:57 AM CDT Narrative [facility] - 01/15/2023 11:28 AM CDT The Urine Toxicology Screening Panel does not screen for Propoxyphene, Meprobamate, Carisoprodol, Trazodone, aisj-qra-towkptq medications and/or volatiles (Acetone, Isopropanol, Methanol or Ethylene Glycol). Ethanol, Salicylate, Acetaminophen, Tricyclic Antidepressants and several therapeutic drugs may be individually assayed in serum or plasma specimen. Toxicology testing by the [facility] is an aid to medical diagnosis and treatment of patients. No documented chain of custody was maintained. Results are intended to be used for clinical purposes only. Steven Wiggins MD LAB - URINE SILVIO MARLENI ORDERABLES Performing Organization Address [facility] Co de Phone Number [facility] [address] [place] [address], [facility] [phone] * EKG 12-LEAD (01/15/2023 10:34 AM CDT) [facility] Ventricular Rate 55 BPM [facility] MUSE Atrial Rate 55 BPM [facility] MUSE P-R Interval 158 ms [facility] MUSE QRS Duration ms 72 ms SL MUSE Q-T Interval ms 444 ms [facility] MUSE QTC Calculation (Bezet) 424 ms [facility] MUSE Calculated P Ethel 76 degrees SL MUSE Calculated R Ethel 58 degrees [facility] MUSE Calculated T Ethel 39 degrees [facility] MUSE Interpretation EKG SINUS BRADYCARDIA OTHERWISE NORMAL ECG NO PREVIOUS ECGS AVAILABLE Confirmed by Jl Bauer ([id number]) on 01/19/2023 11:30:37 AM [facility] MUSE 01/15/2023 10:3 4 AM CDT 01/19/2023 11:30 AM CDT Steven Wiggins MD ECG ORDERABLES Performing Organization Address [facility] Co de Phone Number [facility] MUSE * (ABNORMAL) CYSTATIN C REFLEX (01/15/2023 10:29 AM CDT) eGFR by Cystatin C 55(L) >=60 mL/min/BSA 01/16/2023 11:56 PM CDT [facility] ([facility]) Comment: INTERPRETIVE INFORMATION: eGFR by Cystatin C eGFR by Cystatin C was calculated using the CKD-EPI equation. Stage Description eGFR Range 1.......Normal or increased eGFR.......90 or Greater 2.......Mildly decreased eGFR..........60-89 3.......Moderately decreased eGFR......30-59 4.......Severely decreased eGFR........15-29 5.......Kidney Failure.................Less than 15 Performed by [employer], [address] [place] [address] [email or web address] Carson Woodson MD, PHD, Lab. Director Blood BLOOD SPECIMEN / Unknown Lab Venipuncture / Unknown 01/15/2023 10:29 AM CDT 01/15/2023 10:51 AM CDT Steven Wiggins MD LAB - CHEMISTRY ORDERABLES [facility]) [address] * CYSTATIN C WITH REFLEX TO EGFR (01/15/2023 10:29 AM CDT) Pathologist [facility] Cystatin C 1.2 0.5 - 1.2 mg/L 01/16/2023 11:56 PM CDT [facility] ([facility]) Comment: Performed By: [employer] [address] [place] [address] Locomotive Crane Engineer: Carson Woodson MD, PhD Blood BLOOD SPECIMEN / Unknown Lab Venipuncture / Unknown 01/15/2023 10:29 AM CDT 01/15/2023 10:51 AM CDT Steven Wiggins MD LAB - CHEMISTRY ORDERABLES [facility] ([facility]) [address] [place] [address], [facility] * PTT [facility] (01/15/2023 10:29 AM CDT) APTT 28.5 23.0 - 38.4 Seconds 01/15/2023 11:22 AM CDT [facility] Comment:Suggested therapeuti c range for full dose I.V. unfractionated heparin therapy for venous thromboembolism is 71 to 109 seconds. Blood BLOOD SPECIMEN / Unknown Lab Venipuncture / Unknown 01/15/2023 10:29 AM CDT 01/15/2023 10:58 AM CDT Steven Wiggins MD LAB - COAGULATI ON ORDERABLES Performing Organization Address [facility]/ZIP Co de Phone Number [address] [address], [facility] [phone] * PT-INR [facility] (01/15/2023 10:29 AM CDT) PT 13.0 12.1 - 14.8 Seconds 01/15/2023 11:22 AM CDT [facility] INR 1.0 See Comment 01/15/2023 11:22 AM CDT [facility] Comment:The suggested therap eutic range for standard coumadin (warfarin) therapy is an INR of 2.0-3.0. For high-risk patients (Mechanical Mitral Valve Prosthesis, etc.), the suggested prophylactic therapeutic range is an INR of 2.5-3.5. Blood BLOOD SPECIMEN / Unknown Lab Venipuncture / Unknown 01/15/2023 10:29 AM CDT 01/15/2023 10:58 AM CDT Steven Wiggins MD LAB - COAGULATI ON ORDERABLES Performing Organization Address [facility]/ZIP Co de Phone Number [address] [address], [facility] [phone] * HLA TYPING DNA LOW RESOLUTION DR,DQ (01/15/2023 10:29 AM CDT) [facility] Signature DR DQ Low Resolution DRB1-1 *03(DR17) 01/26/2023 5:19 PM CDT [facility] ([facility]) DR DQ Low Resolution DRB1-2 *07 01/26/2023 5:19 PM CDT [facility] ([facility]) DR DQ Low Resolution DQB1-1 *02 01/26/2023 5:19 PM CDT [facility] ([facility]) DR DQ Low Resolution DQB1-2 - 01/26/2023 5:19 PM CDT [facility] ([facility]) DR DQ Low Resolution DRB3-1 *01 01/26/2023 5:19 PM CDT [facility] ([facility]) DR DQ Low Resolution DRB3-2 Negative 01/26/2023 5:19 PM CDT [facility] ([facility]) DR DQ Low Resolution DRB4-1 *01 01/26/2023 5:19 PM CDT [facility] ([facility]) DR DQ Low Resolution DRB4-2 Negative 01/26/2023 5:19 PM CDT [facility] ([facility]) DR DQ Low Resolution DRB5-1 Negative 01/26/2023 5:19 PM CDT [facility] ([facility]) DR DQ Low Resolution DRB5-2 Negative 01/26/2023 5:19 PM CDT [facility] ([facility]) DR DQ Low Resolution Methodology Real Time PCR 01/26/2023 5:19 PM CDT [facility] ([facility]) Comment DR DQ Low Resolution - 01/26/2023 5:19 PM CDT [facility] ([facility]) DR DQ Low Resolution test date 01/26/2023 01/26/2023 5:19 PM CDT [facility] ([facility]) Comment: This test was developed and its performance characteristics determined by the [facility]. It has not been cleared or [...] high complexity clinical laboratory testing. CLIA ID# [id number] Performed at: [facility], [address] [place] [id number] Order Schedule Clerk:Dr. Chito Mcfadden, PhD, Blood BLOOD SPECIMEN / Unknown Lab Venipuncture / Unknown 01/15/2023 10:29 AM CDT 01/15/2023 10:51 AM CDT Steven Wiggins MD LAB - BLOOD BAN K ORDERABLES [facility] ([facility]) [address] [place] [id number] * HLA TYPING DNA LOW RESOLUTION A,B,C (01/15/2023 10:29 AM CDT) ABC DNA A1 *01 01/26/2023 5:19 PM CDT [facility] ([facility]) ABC DNA A2 *29 01/26/2023 5:19 PM CDT [facility] ([facility]) ABC DNA B1 *08 01/26/2023 5:19 PM CDT [facility] ([facility]) ABC DNA B2 *44 01/26/2023 5:19 PM CDT [facility] ([facility]) ABC DNA BW1 6 01/26/2023 5:19 PM CDT [facility] ([facility]) ABC DNA BW2 4 01/26/2023 5:19 PM CDT [facility] ([facility]) ABC DNA C1 *07 01/26/2023 5:19 PM CDT [facility] ([facility]) ABC DNA C2 *16 01/26/2023 5:19 PM CDT [facility] ([facility]) ABC DNA Methodology Real Time PCR 01/26/2023 5:19 PM CDT [facility] ([facility]) Comment ABC DNA - 5:19 PM CDT [facility] ([facility]) ABC DNA Test Date 3 01/26/2023 5:19 PM CDT [facility] ([facility]) Comment: This test was developed and its performance characteristics determined by the [facility]. It has not been cleared or [...] high complexity clinical laboratory testing. CLIA ID# [id number] Performed at: [facility], [address] [place] [id number] Order Schedule Clerk:Dr. Chito Mcfadden, PhD, Blood BLOOD SPECIMEN / Unknown Lab Venipuncture / Unknown 01/15/2023 10:29 AM CDT 01/15/2023 10:51 AM CDT Steven Wiggins MD LAB - BLOOD BAN K ORDERABLES Performing Organization Address City/State/[facility] Co de Phone Number [facility] ([facility]) [address] * (ABNORMAL) TIMI-KHOURY VIRUS AB VIRAL CAPSID IGG/IGM (01/15/2023 10:29 AM CDT) [facility] Timi-Khoury Viral Capsid Antigen Antibody IgG 225.0(H) 0.0 - 17.9 U/mL 01/16/2023 2:10 PM CDT [facility] ([facility]) Comment: Negative <18.0 Equivocal 18.0 - 21.9 Positive >21.9 Timi-Khoury Viral Capsid Antigen Antibody IgM <36.0 0.0 - 35.9 U/mL 01/16/2023 2:10 PM CDT [facility] ([facility]) Comment: Negative <36.0 Equivocal 36.0 - 43.9 Positive >43.9 Blood BLOOD SPECIMEN / Unknown Lab Venipuncture / Unknown 01/15/2023 10:29 AM CDT 01/15/2023 3:29 PM CDT Narrative [facility] ([facility]) - 01/16/2023 2:10 PM CDT Performed at: [address] [place] [address] [address] [place], [place] [id number] Order Schedule Clerk: Vlad Mcdonald PhD, Phone: [phone] Steven Wiggins MD LAB - SEROLOGY ORDERABLES Performing Organization Address City/[facility] Co de Phone Number [facility] [address] [place] [address], [place] * HIV 1/0/2 RFLX TO WB DONOR (01/15/2023 10:29 AM CDT) Pathologist [facility] HIV-1/HIV-2 Ab + p24 Ag Negative Negative 01/16/2023 7:08 PM CDT [facility] ([facility]) Comment: Test performed with [employer] s HIV Ag/Ab kit. The HIV Ag/Ab Combo Kit can detect: HIV-1 (groups M and O)/HIV-2 Ab, HIV-1 p24 Ag Blood BLOOD SPECIMEN / Unknown Lab Venipuncture / Unknown 01/15/2023 10:29 AM CDT 01/15/2023 10:51 AM CDT Narrative [facility] ([facility]) - 01/16/2023 7:08 PM CDT Performed at: - [facility] [address] [id number] Order Schedule Clerk: Junior Alvarado [facility], Phone: [phone] Steven Wiggins MD LAB - CHEMISTRY ORDERABLES Performing Organization Address City/[facility] Co de Phone Number [facility] ([facility]) [address] [place] [address] * (ABNORMAL) HEPATITIS C AB SCREEN RFLX NAAT QUANT (01/15/2023 10:29 AM CDT) Pathologist [facility] Hepatitis C Antibody Indetermi patt(A) Non-react kiran 01/15/2023 1:15 PM CDT [facility] Comment:Serum for supplement al Hepatitis C quantitative RNA PCR testing will be reflexively sent out by the lab. Blood BLOOD SPECIMEN / Unknown Lab Venipuncture / Unknown 01/15/2023 10:29 AM CDT 01/15/2023 10:47 AM CDT Steven Wiggins MD LAB - CHEMISTRY ORDERABLES Performing Organization Address [facility]/ZIP Co de Phone Number [address] [address], [facility] [phone] * SYPHILIS ANTIBODY CASCADING REFLEX (01/15/2023 10:29 AM CDT) Treponema pallidum Antibody Non-react kiran Non-react kiran 01/15/2023 1:42 PM CDT [facility] Comment: No Laboratory evidence of syphilis infection. Note: Circulating antibodies may be low or undetectable in early infection. If recent exposure is suspected, re-draw sample in 2-4 weeks and repeat testing. Blood BLOOD SPECIMEN / Unknown Lab Venipuncture / Unknown 01/15/2023 10:29 AM CDT 01/15/2023 10:47 AM CDT Steven Wiggins MD LAB - SEROLOGY ORDERABLES Performing Organization Address [facility] Co de Phone Number [address] [address], [facility] [phone] * TRYPANOSOMA ANTIBODY IGG (01/15/2023 10:29 AM CDT) [facility] System Trypan. cruzi IgG 0.3 <=1.0 IV 023 4:18 AM CDT [facility] ([facility]) Comment: INTERPRETIVE INFORMATION: Trypanosoma cruzi Ab, IgG [...] is sufficiently sensitive and specific. Performed By: [employer] [address] [place] [address] Locomotive Crane Engineer: Carson Woodson MD, PhD Blood BLOOD SPECIMEN / Unknown Lab Venipuncture / Unknown 01/15/2023 10:29 AM CDT 01/15/2023 10:52 AM CDT Steven Wiggins MD LAB - SEROLOGY ORDERABLES [facility] ([facility]) [address] [place] [address], [facility] * QUANTIFERON-TB GOLD PLUS 4-TUBE (01/15/2023 10:29 AM CDT) [facility] QuantiFERON NIL 0.02 IU/mL 3:48 AM CDT [facility] ([facility]) Comment: Performed By: [employer] [address] [place] [address] Locomotive Crane Engineer: Carson Woodson MD, PhD QuantiFERON TB Gold Plus Negative Negative 01/18/2023 3:48 AM CDT [facility] [employer] ([facility]) Comment: Interpretive Data: Quantiferon TB Gold [...] Mycobacterium tuberculosis Infection --- [place], 2010 (http://www.cdc.gov/mmwr/preview/mmwrhtml/hd4736n6.htm), for more information concerning test performance in low-prevalence populations and use in occupational screening. QuantiFERON Plus TB1 Minus NIL 0.00 0.00 - 0.34 IU/mL 01/18/2023 3:48 AM CDT [facility] ([facility]) QuantiFERON Plus TB2 Minus NIL 0.00 0.00 - 0.34 IU/mL 01/18/2023 3:48 AM CDT [facility] ([facility]) QuantiFERON Mitogen Minus NIL >10.00 IU/mL 01/18/2023 3:48 AM CDT [facility] ([facility]) Blood BLOOD SPECIMEN / Unknown Lab Venipuncture / Unknown 01/15/2023 10:29 AM CDT 01/15/2023 10:50 AM CDT Steven Wiggins MD LAB - CHEMISTRY ORDERABLES [facility]) [address] [place] [address] * URIC ACID BLOOD (01/15/2023 10:29 AM CDT) Uric Acid 3.8 2.6 - 6.0 mg/dL 01/15/2023 11:25 AM CDT [facility] Blood BLOOD SPECIMEN / Unknown Lab Venipuncture / Unknown 01/15/2023 10:29 AM CDT 01/15/2023 10:58 AM CDT Steven Wiggins MD LAB - CHEMISTRY ORDERABLES [facility] [address] [place] [address], [facility] [phone] * WEST NILE VIRUS ANTIBODY IGG/IGM PANEL (01/15/2023 10:29 AM CDT) West Nile IgG Ab 0.50 <=1.29 IV 01/19/20 9:53 PM CDT [facility]) Comment: INTERPRETIVE INFORMATION: West Nile Virus Ab, [...] Nile IgM Ab 0.02 <=0.89 IV 01/19/20 23 9:53 PM [facility] ([facility]) Comment: INTERPRETIVE INFORMATION: West Nile Virus Ab, [...] laboratory at the same time. Performed By: [employer] [address] [place] [address] Locomotive Crane Engineer: Carson Woodson MD, PhD Blood BLOOD SPECIMEN / Unknown Lab Venipuncture / Unknown 01/15/2023 10:29 AM CDT 01/15/2023 10:52 AM CDT Steven Wiggins MD LAB - CHEMISTRY ORDERABLES Performing Organization Address City/[facility]/ZIP Co de Phone Number [facility] [employer] [facility]) [address] [place] [address] * STRONGYLOIDES ANTIBODY IGG (01/15/2023 10:29 AM CDT) [facility] Strongyloides Antibody IgG 0.1 <=0.9 IV 01/18/2023 5:01 PM CDT [facility] [employer] ([facility]) Comment: INTERPRETIVE INFORMATION: Strongyloides Ab, IgG by [...] also result in false-positive results. Performed By: [employer] [address] [place] [address] Locomotive Crane Engineer: Carson Woodson MD, PhD Blood BLOOD SPECIMEN / Unknown Lab Venipuncture / Unknown 01/15/2023 10:29 AM CDT 01/15/2023 10:52 AM CDT Steven Wiggins MD LAB - SEROLOGY ORDERABLES [facility] [employer] ([facility]) [address] [place] [address], [facility] * HEPATITIS C RNA QUANTITATIVE (01/15/2023 10:29 AM CDT) [facility] Hepatitis C RNA PCR, Interp Not detected Not detected 01/19/2023 1:08 PM CDT [facility] Blood BLOOD SPECIMEN / Unknown Lab Venipuncture / Unknown 01/15/2023 10:29 AM CDT 01/15/2023 1:15 PM CDT Narrative [facility] - 01/19/2023 1:08 PM CDT The Hepatitis C viral (HCV) RNA analysis utilized a serum sample, real-time reverse production support consultant PCR, and is reported as Not Detected, [...] the isolation of HCV RNA with reverse production support consultant of genomic HCV RNA followed by real-time PCR in the presence of an unrelated RNA internal control. The internal control ensures that RNA is isolated, and that no general significant inhibitors of the RT-PCR process are present. The analysis was performed using a U.S. FDA approved test methodology. Steven Wiggins MD LAB - CHEMISTRY ORDERABLES [facility] [address] [place], [place] [address], [facility] [phone] * CYTOMEGALOVIRUS ANTIBODY IGM BLOOD (01/15/2023 10:29 AM CDT) [facility] Cytomegalovirus Antibody IgM <30.0 0.0 - 29.9 AU/mL 01/17/2023 6:10 AM CDT [facility] ([facility]) Comment: Negative <30.0 Equivocal 30.0 - 34.9 Positive >34.9 A positive result is generally indicative of acute infection, reactivation or persistent IgM production. Blood BLOOD SPECIMEN / Unknown Lab Venipuncture / Unknown 01/15/2023 10:29 AM CDT 01/15/2023 10:52 AM CDT [facility] ([facility]) - 01/17/2023 6:10 AM CDT Performed at: [address] [place] [address] [place] [id number] Order Schedule Clerk: Vlad Mcdonald PhD, Phone: [phone] Steven Wiggins MD LAB - CHEMISTRY ORDERABLES [facility]) [address] [place] [address] * CYTOMEGALOVIRUS ANTIBODY IGG BLOOD (01/15/2023 10:29 AM CDT) [facility] Cytomegalovirus Antibody IgG >10.00 U/mL 01/17/2023 4:19 AM CDT [facility] ([facility]) Comment: INTERPRETIVE INFORMATION: Cytomegalovirus Antibody, IgG 0.59 [...] laboratory at the same time. Performed By: [employer] [address] [place] [address] Locomotive Crane Engineer: Carson Woodson MD, PhD Blood BLOOD SPECIMEN / Unknown Lab Venipuncture / Unknown 01/15/2023 10:29 AM CDT 01/15/2023 10:52 AM CDT Steven Wiggins MD LAB - CHEMISTRY ORDERABLES [facility]) [address] [place] [address], [facility] * HEMOGLOBIN A1C (01/15/2023 10:29 AM CDT) Hemoglobin A1c 5.6 <=5.6 % 01/16/2023 8:44 AM CDT [facility] Estimated Average Glucose 114 mg/dL 01/16/2023 8:44 AM CDT [facility] Comment: HbA1c Interpretation: Normal : < 5.7% Pre-diabetes: 5.7-6.4% Diabetes: Equal to or greater than 6.5% Test results diagnostic of diabetes should be repeated for confirmation. Treatment target values recommended by ADA and other clinical organizations should be used to evaluate metabolic control in patients. Reference: [place] Diabetes Association, Standards of Care in Diabetes -2020 In patients 70 years and older consider HbA1c target range of 7.0-7.5% (Reference: Randy Knowles, et al. JAMDA. 2012) The Sebia assay for the measurement of HbA1c is a National Glycohemoglobin Standardization Program (NGSP) certified method. Blood BLOOD SPECIMEN / Unknown Lab Venipuncture / Unknown 01/15/2023 10:29 AM CDT 01/15/2023 10:58 AM CDT Steven Wiggins MD LAB - CHEMISTRY ORDERABLES [facility] [address] [place] [address], [facility] [phone] * TYPE + SCREEN PANEL (01/15/2023 10:29 AM CDT) Antibody Screen NEG 12:05 PM CDT [facility] ABO Rh O POS 01/15/2023 12:05 PM CDT [facility] Blood Bank BLOOD SPECIMEN / Unknown Lab Venipuncture / Unknown 01/15/2023 10:29 AM CDT 01/15/2023 11:24 AM CDT Steven Wiggins MD LAB - BLOOD BAN K ORDERABLES [facility] [address] [place] [address], [facility] [phone] * NICOTINE + METABOLITES BLOOD (01/15/2023 10:29 AM CDT) Nicotine <5 ng/mL 01/19/2023 12:43 AM CDT [facility] [employer] ([facility]) Comment: Consistent with abstinence from nicotine-containing products [...] developed and its performance characteristics determined by [employer]. It has not been cleared or approved by the US Food and Drug Administration. This test was performed in a CLIA certified laboratory and is intended for clinical purposes. Performed By: [employer] [address] [place] [address] Locomotive Crane Engineer: Carson Woodson MD, PhD Cotinine <5 ng/mL 01/19/2023 12:43 AM CDT [facility] [employer] ([facility]) Blood BLOOD SPECIMEN / Unknown Lab Venipuncture / Unknown 01/15/2023 10:29 AM CDT 01/15/2023 10:52 AM CDT Steven Wiggins MD LAB - CHEMISTRY ORDERABLES [facility] ([facility]) [address] [place] [address], [facility] * CBC WITH DIFFERENTIAL (01/15/2023 10:29 AM [facility]) WBC 3.6 3.5 - 10.5 10 3/uL 01/15/2023 11:07 AM [facility] RBC 4.27 3.80 - 5.20 10 6/uL 01/15/2023 11:07 AM [facility] Hemoglobin 13.3 12.0 - 15.6 g/dL 01/15/2023 11:07 AM [facility] Hematocrit 40.5 35.0 - 45.0 % 01/15/2023 11:07 AM [facility] MCV 94.8 80.7 - 98.3 fL 01/15/2023 11:07 AM [facility] MCH 31.1 26.7 - 34.0 pg 01/15/2023 11:07 AM [facility] MCHC 32.8 30.8 - 35.9 g/dL 01/15/2023 11:07 AM [facility] RDW-SD 46.2 36.0 - 50.0 fL 01/15/2023 11:07 AM [facility] RDW-CV 13.2 11.2 - 14.8 % 01/15/2023 11:07 AM [facility] Platelet Count 258 150 - 400 10 3/uL 01/15/2023 11:07 AM [facility] MPV 10.1 9.4 - 12.9 fL 01/15/2023 11:07 AM [facility] nRBC Absolute 0.00 0 10 3/uL 01/15/2023 11:07 AM [facility] nRBC Auto 0.0 0 /100 WBC 01/15/2023 11:07 AM [facility] Neutrophils % 54.6 35.0 - 70.0 % 01/15/2023 11:07 AM [facility] Lymphocytes % 31.2 20.0 - 43.0 % 01/15/2023 11:07 AM [facility] Monocytes % 10.6 5.0 - 13.0 % 01/15/2023 11:07 AM [facility] Eosinophils % 2.2 0.0 - 6.0 % 01/15/2023 11:07 AM [facility] Basophil % 1.1 0.0 - 2.0 % 01/15/2023 11:07 AM [facility] Neutrophils Absolute 1.96 1.60 - 7.00 10 3/uL 01/15/2023 11:07 AM [facility] Lymphocyte Absolute 1.12 1.10 - 3.90 10 3/uL 01/15/2023 11:07 AM [facility] Monocytes Absolute 0.38 0.26 - 1.07 10 3/uL 01/15/2023 11:07 AM [facility] Eosinophils Absolute 0.08 0.00 - 0.47 10 3/uL 01/15/2023 11:07 AM [facility] Basophils Absolute 0.04 0.00 - 0.08 10 3/uL 01/15/2023 11:07 AM [facility] Immature Granulocytes % 0.3 0.0 - 1.0 % 01/15/2023 11:07 AM [facility] Immature Granulocytes Absolute 0.01 01/15/2023 11:07 AM [facility] Blood BLOOD SPECIMEN / Unknown Lab Venipuncture / Unknown 01/15/2023 10:29 AM CDT 01/15/2023 10:50 AM CDT Steven Wiggins MD LAB - HEMATOLOG Y ORDERABLES [facility] [address] [place] [address], [facility] [phone] * (ABNORMAL) COMPREHENSIVE METABOLIC PANEL (01/15/2023 10:29 AM CDT) BUN 10 7 - 26 mg/dL 01/15/2023 11:25 AM [facility] Creatinine 0.81 0.56 - 0.96 mg/dL 01/15/2023 11:25 AM [facility] Sodium 138 136 - 145 mmol/L 01/15/2023 11:25 AM [facility] Potassium 3.7 3.5 - 4.5 mmol/L 01/15/2023 11:25 AM [facility] Chloride 104 98 - 107 mmol/L 01/15/2023 11:25 AM [facility] CO2 27 22 - 29 mmol/L 01/15/2023 11:25 AM [facility] Glucose 83 70 - 115 mg/dL 01/15/2023 11:25 AM [facility] Calcium 9.2 8.4 - 10.2 mg/dL 01/15/2023 11:25 AM [facility] Protein Total 6.7 6.0 - 8.3 g/dL 01/15/2023 11:25 AM [facility] Albumin 3.8 3.4 - 5.0 g/dL 01/15/2023 11:25 AM [facility] Bilirubin Total 0.6 0.2 - 1.2 mg/dL 01/15/2023 11:25 AM [facility] Alkaline Phosphatase 80 40 - 150 U/L 01/15/2023 11:25 AM [facility] ALT 14 5 - 55 U/L 01/15/2023 11:25 AM [facility] AST 20 5 - 34 U/L 01/15/2023 11:25 AM [facility] Anion Gap 11 8 - 18 01/15/2023 11:25 AM [facility] BUN/Creatinine Ratio 12 7 - 23 01/15/2023 11:25 AM [facility] Osmolality Calculated 284 270 - 300 mOsm/kg 01/15/2023 11:25 AM [facility] Albumin/Globulin Ratio 1.3 1.1 - 2.3 01/15/2023 11:25 AM [facility] eGFR by CKD-EPI 79(L) >=90 mL/min/1.7 3 m2 01/15/2023 11:25 AM [facility] Blood BLOOD SPECIMEN / Unknown Lab Venipuncture / Unknown 01/15/2023 10:29 AM CDT 01/15/2023 10:58 AM CDT Steven Wiggins MD LAB - CHEMISTRY ORDERABLES Performing Organization Address City[facility] Co de Phone Number [address] [address], [facility] [phone] * PHOSPHORUS BLOOD (01/15/2023 10:29 AM CDT) Phosphorus 2.9 2.9 - 5.1 mg/dL 01/15/2023 11:25 AM CDT [facility] Blood BLOOD SPECIMEN / Unknown Lab Venipuncture / Unknown 01/15/2023 10:29 AM CDT 01/15/2023 10:58 AM CDT Steven Wiggins MD LAB - CHEMISTRY ORDERABLES Performing Organization Address [facility] de Phone Number [address] [address], [facility] [phone] * HEPATITIS B SURFACE ANTIBODY (01/15/2023 10:29 AM CDT) Hepatitis B Virus Surface Antibody Non-react kiran Non-react kiran 01/15/2023 1:41 PM CDT [facility] Comment: < 8 mIU/mL Hepatitis B surface Antibody (HBsAb). Nonreactive for HBsAb - individual is considered not immune to Hepatitis B Virus infection. Hepatitis B Surface Antibody Quantitative 0.0 <8.0 mIU/mL 01/15/2023 1:41 PM CDT [facility] Comment: Hepatitis B Surface Antibody Numeric Result Interpretation: Nonreactive: <8.0 mIU/mL Indeterminate: 8.0 - 12.0 mIU/mL Reactive: >12.0 mIU/mL Blood BLOOD SPECIMEN / Unknown Lab Venipuncture / Unknown 01/15/2023 10:29 AM CDT 01/15/2023 10:47 AM CDT Steven Wiggins MD LAB - CHEMISTRY ORDERABLES Performing Organization Address [facility] Co de Phone Number [address] [place] [address], [facility] [phone] * HEPATITIS B CORE ANTIBODY TOTAL (01/15/2023 10:29 AM CDT) HBc Antibody Total Non-reacti ve Non-reacti ve 01/15/2023 1:42 PM CDT [facility] Blood BLOOD SPECIMEN / Unknown Lab Venipuncture / Unknown 01/15/2023 10:29 AM CDT 01/15/2023 10:47 AM CDT Steven Wiggins MD LAB - CHEMISTRY ORDERABLES [address] [address], [facility] [phone] * HEPATITIS B SURFACE ANTIGEN W RFLX CONFIRMATION (01/15/2023 10:29 AM CDT) Pathologist [facility] Hepatitis B Virus Surface Antigen Non-reacti ve Non-reacti ve 01/15/2023 1:35 PM CDT [facility] Blood BLOOD SPECIMEN / Unknown Lab Venipuncture / Unknown 01/15/2023 10:29 AM CDT 01/15/2023 10:47 AM CDT Steven Wiggins MD LAB - CHEMISTRY ORDERABLES [address] [address], [place] [phone] * ALCOHOL ETHYL BLOOD (01/15/2023 10:29 AM CDT) Ethanol (mg/dL) <10 <=10 mg/dL 11:25 AM CDT [facility] Ethanol Calculated (g/dL) <0.010 <0.010 g/dL 01/15/2023 11:25 AM CDT [facility] Blood BLOOD SPECIMEN / Unknown Lab Venipuncture / Unknown 01/15/2023 10:29 AM CDT 01/15/2023 10:58 AM CDT Narrative [facility] - 01/15/2023 11:25 AM CDT Ethanol Interp <10: None Detected. Depression of DOPE POURER: >100 mg/dl Potentially Critical: >250 mg/dl Potentially Fatal >400 mg/dl Ethanol in the patient's blood will contribute to the osmolar gap. Ethanol's contribution to the osmolar gap can be estimated by dividing the concentration of ethanol in mg/dL by 4.6. This test is for clinical use only and does not equal a [place] for legal purposes. Steven Wiggins MD LAB - CHEMISTRY ORDERABLES [facility] [address] [place] [address], [facility] [phone] * (ABNORMAL) LIPID PROFILE (01/15/2023 10:29 AM CDT) [facility] Cholesterol Total 249(H) <200 mg/dL 01/15/2023 11:25 AM [facility] HDL 74 >40 mg/dL 01/15/2023 11:25 AM T [facility] Comment: ATP III Classification of HDL Cholesterol: <40 mg/dL: Considered a major risk factor. >60 mg/dL: Considered a negative risk factor. LDL Calculated 158(H) <100 mg/dL 01/15/2023 11:25 AM [facility] Comment: ATP III Classification of LDL Cholesterol: <100 mg/dL: Optimal 100 - 129 mg/dL: Near Optimal/Above Optimal 130 - 159 mg/dL: Borderline High 160 - 189 mg/dL: High >190 mg/dL: Very High Triglycerides 83 <150 mg/dL 01/15/2023 11:25 AM T [facility] Comment: ATP III Classification of Triglycerides: <150 mg/dL: Normal 150 - 199 mg/dL: Borderline High 200 - 400 mg/dL: High >500 mg/dL: Very High Blood BLOOD SPECIMEN / Unknown Lab Venipuncture / Unknown 01/15/2023 10:29 AM CDT 01/15/2023 10:58 AM CDT Steven Wiggins MD LAB - CHEMISTRY ORDERABLES [facility] [address] [place] [address], [facility] [phone] Light Inspector Relationship Specialty Start Date End Date Unknown, Provider PCP - General 01/13/23
--- OUTSIDE RECORDS SUMMARY | 2024-12-06 17:31 | XMS_ITS | Clinical Summary ---
Author Organization [facility] Address [address] [place] [address] Phone Care Team Providers Care Jack Setter Name Role Phone Juan Luis Silveira MD Primary Care Provider [phone] Allergies Active Allergy Reactions Criticality Noted Date Comments Latex Rash Low 11/19/2018 Medications tiZANidine (ZANAFLEX) 4 mg Tablet Take 1 Tablet (4 mg) by mouth every 8 hours as needed for Discomfort or Spasm. 60 Tablet 1 11/23/2018 4:09 PM DATA POWER CONSULTANT 9 Active HYDROcodone-alexei taminophen (NORCO) 5-325 mg tablet Take 1 Tablet by mouth every 4-6 hours as needed for moderate pain. Max Daily Amount: 6 Tablets 30 Tablet 11/23/2018 4:09 PM DATA POWER CONSULTANT 9 Active Active Problems Problem Noted Date Diagnosed Date HNP (herniated nucleus pulposus), lumbar 019 Immunizations Immunization Administration Dates Next Due Influenza Seasonal Unspecified Formulation IM Social History Tobacco Use Types Packs/Day Years Used Date Smoking Tobacco: Never Smokeless Tobacco: Never Alcohol Use Standard Drinks/Week Comments Yes 0 (1 standard drink = 0.6 oz pur e alcohol) socially Comments No Sex and Gender Information Value Date Recorded Sex Assigned at Not on file Legal Sex Female 4:11 AM DATA POWER CONSULTANT Gender Identity Not on file Sexual Orientation Not on file Last Filed Vital Signs Vital Sign Reading Time Taken Comments Blood Pressure 120/59 11/23/2018 2:10 PM DATA POWER CONSULTANT Pulse 67 11/23/2018 2:10 PM DATA POWER CONSULTANT Temperature 36.1 C (97 F) 11/23/2018 2:10 PM DATA POWER CONSULTANT Respiratory Rate 16 11/23/2018 2:10 PM DATA POWER CONSULTANT Oxygen Saturation 99% 11/23/2018 2:10 PM DATA POWER CONSULTANT Inhaled Oxygen Concentration - - Weight 83.9 kg (185 lb) 11/23/2018 9:05 AM DATA POWER CONSULTANT Height 162.6 cm (5' 4 ) 11/23/2018 9:05 AM DATA POWER CONSULTANT Body Mass Index 31.76 11/23/2018 9:05 AM DATA POWER CONSULTANT Plan of Treatment Health Maintenance Due Date Last Done Comments DTAP/TDAP/TD VACCINES (1 - Tdap) 1972 BREAST CANCER SCREENING 1993 COLORECTAL SCREENING 1998 Colorectal Cancer Screening 1998 FIT-DNA Q 3 years 1998 FIT/FOBT Q 1 year 1998 Flex Sig/CT Colonography Q 5 years 1998 PNEUMOCOCCAL VACCINE 50+ YEARS (1 of 1 - PCV) 07/14/20 03 ZOSTER VACCINE (1 of 2) 2003 OSTEOPOROSIS SCREENING 2018 INFLUENZA VACCINE (#1) 2024 07/19/2018 RSV VACCINE (60+ or ) (1 - 1-dose 75+ series) 2028 Medical Devices Implanted Type Area Warehouse General Laborer Device Identifier Shelf Expiration Date Model / Serial / Lot Hemostatic Surgiflo 8ml W/Thrombin 2994 - [id number] Implanted:Qty: 1 on 11/23/2018 by Aaron Tamez MD at [facility] Hemostatic Left: Spine Lumbar [employer] 02/26/2020 [id number] / / [id number] Insurance RX [employer] RX Member Subscriber Plan / Payer (Ef fective 2018-Present) Name:June Taylor Relation to Subscriber:Self Name:June Taylor Payer ID:Not on file Group ID:[id number] Type:RX Medicare Part D Address: [address] Advance Directives For more information, please contact: [phone] * Full Code (Latest Code Status on File) Date Activated Date Inactivated Comments 11/23/2018 10:20 AM 11/23/2018 4:27 PM * Full Code Date Activated Date Inactivated Comments 11/23/2018 9:14 AM 11/23/2018 10:20 AM Care Teams Jack Setter Relationship Specialty Start Date End Date Juan Luis Silveira MD [address] [place] [id number] PCP - General Family Practice 11/19/18
--- OUTSIDE RECORDS SUMMARY | 2024-12-06 17:31 | XMS_ITS | Encounter Summary ---
Author Organization [facility] Address [address] [place] [address] Care Team Providers Care Mold Clamper Name Role Phone Walter Brown DO Primary Care Provider + Encounter Details Date Type Department Care Team (Late st Contact Info) Description 12/01/[address] [employer] [facility] Family & Internal Medicine [facility] [address] [place] [address] Walter Brown DO [address] [place] [address] Mammogram results Social History Tobacco Use Types Packs/Day Years Used Date Smoking Tobacco: Never Passive Smoke Exposure: Never Smokeless Tobacco: Never Comments:never Alcohol Use Standard Drinks/Week Comments Not Currently 0 (1 standard drink = 0.6 oz pur e alcohol) AUDIT-C Answer Date Recorded Frequency of Alcohol Consumption 2-4 times a thu11/07/2019 Average Number of Drinks 1 or 2 020 Frequency of Binge Drinking Never 10/29 PHQ-2 Answer Date Recorded Patient Health Questionnaire-2 Score 0 05/04/2023 Comments No Sex and Gender Information Value Date Recorded Sex Assigned at Not on file Legal Sex Female 7:13 PM CDT Gender Identity Not on file Sexual Orientation Not on file Occupation Industry Job Start Date Job End Date Not on file Not on file Not on file Not on file documented as of this encounter Plan of Treatment Not on file documented as of this encounter Visit Diagnoses Not on filedocumented in this encounter Additional Health Concerns Assessment Noted Time PHQ-9 Depression Total Score: 1 11/15/19 21 8:28 AM TRIAL MANAGEMENT ASSOCIATE documented as of this encounter Care Teams Mold Clamper Relationship Specialty Start Date End Date Walter Brown DO [address] [place] [address] PCP - General FAMILY PRACTICE 11/07/19 documented as of this encounter
--- OUTSIDE RECORDS SUMMARY | 2024-12-06 17:31 | XMS_ITS | Encounter Summary ---
Author Organization [facility] Address [address] [place] [address] Care Team Providers Care Perioperative Educator Name Role Phone Juan Luis Silveira MD Primary Care Provider Encounter Details Date Type Department Care Team (Latest Contact Info) Description 04/12/2002 Outpatient Historical HIS PATIENT IN A BED Brice Shirley MD [address] [facility] [place] [address] BackerAlfonso MD NO ADDRESS ON FILE CERVICAL SPONDYLOSIS (Primary Dx) Social History Tobacco Use Types Packs/Day Years Used Date Smoking Tobacco: Never Assessed Comments Unknown Sex and Gender Information Value Date Recorded Sex Assigned at Not on file Legal Sex Female 4:11 AM TRAVEL REGISTERED NURSE ICU Gender Identity Not on file Sexual Orientation Not on file documented as of this encounter Plan of Treatment Not on file documented as of this encounter Visit Diagnoses Diagnosis Cervical spondylosis without myelopathy- Primary documented in this encounter Care Teams Perioperative Educator Relationship Specialty Start Date End Date Juan Luis Silveira MD [address] [place] [address] PCP - General Family Practice 11/19/18 documented as of this encounter
== END 2024-12-06 15:30 | disposition home or self-care (01) ==
LOC: ANHIMG 15:31
PROVIDERS: PCP Student in an Organized Health Care Education/Training Program; Visit Provider Student in an Organized Health Care Education/Training Program
DX: Z12.31 Encounter for screening mammogram for malignant neoplasm of breast (principal); Z80.3 Family history of malignant neoplasm of breast
CPT/HCPCS: 77063; 77067